=== PATIENT | female | born 1965 | race Caucasian/White ===

== ENCOUNTER 2024-02-06 07:50 | Outpatient (AMB) | payer MEDICAID, SELFPAY ==
[2024-02-06 07:52] VITALS: BP 120/70; PULSE 71; O2SAT 96; BMI 32.5
--- NOTE | 2024-02-06 07:52 | A.OFFVIS_ITS ---
Vital Signs 02/06/24 07:52 Height 5 ft 2 in Weight 177 lb 14.609 oz BMI 32.5 BP 120/70 Blood Pressure Location Lt brachial Position Sitting Pulse 71 Pulse Source Pulse Oximeter Pulse Oximetry (%) 96 Oxygen Delivery Method Room Air Intake Visit Reasons: Autoimmune disease/CM apt Intake Note: Patient presents today for follow up on dermatomyositis. Allergies codeine Allergy (Unknown, Verified 02/06/24 07:56) nausea, dizziness HPI HPI Autoimmune disease/CM apt: Details: less muscle pain since being on Wegovy. Loosing weight. Left ear lesion started a month ago. Improving with topical steroid. No dyspnea or dysphagia. Dermatology - Dr. Arias. She saw Dr. Preciado 3 months ago and received cortisone injection. [facility] Medical History (Updated 02/06/24 @ 08:43 by Maxwell Lafleur MD) Fibroid uterus Dermatomyositis Surgical History (Updated 02/06/24 @ 08:08 by Smiley Ford CMA) H/O gastric sleeve Family History (Updated 02/06/24 @ 08:09 by Smiley Ford CMA) Mother Lung cancer Social History (Updated 02/06/24 @ 08:10 by Smiley Ford CMA) Alcohol intake: never Patient Tobacco Use Status: Former Tobacco user Review of Systems Const All systems reviewed & are unremarkable except as noted in HPI and below Physical Exam Vital Signs: Last Vital Signs Pulse 71 02/06/24 07:52 BP 120/70 02/06/24 07:52 Pulse Ox 96 02/06/24 07:52 Oxygen Delivery Method Room Air 02/06/24 07:52 BMI result Body Mass Index 32.5 Const Other: General: Comfortable CVS: RRR Respiratory: clear to auscultation bilaterally. Good respiratory effort Skin: She has a small 2 mm size erythematous lesion left external ear MSK: No tenderness of any small joints. Left shoulder is tender on palpation with limited abduction up to 90 degrees. She also has limited internal external rotation of left shoulder. Right shoulder range of motion is normal. Good range of motion of lower extremity. Office Procedures AMB Joint Injection/Aspiration Joint Injection/Aspiration Primary Site: left shoulder Coding 85786 - Large joint Procedure code (CPT) selection complete Office Meds Kenalog 40 mg/mL suspension for injection Performing Provider: Maxwell Lafleur MD Performing Location: [facility] Administered by: Maxwell Lafleur MD on 02/06/24 08:40 Dose Route Admin Location Dispensed Lot Number Expiration Date [facility] Esthetician Facialist 40 mg intra-articular 1 mL AP [id number] [employer] lidocaine (PF) 10 mg/mL (1 %) injection solution Performing Provider: Maxwell Lafleur MD Performing Location: [facility] Administered by: Maxwell Lafleur MD on 02/06/24 08:40 Dose Route Admin Location Dispensed Lot Number Expiration Date [place] Esthetician Facialist 10 mg Infiltration 2 mL [id number] [facility] Assessment & Plan Assessment & Plan (1) Dermatomyositis: Comment: Clinically doing well. She had slight recurrence of lesion left external ear, which is improving with topical steroid. Code(s): M33.13 - Other dermatomyositis without myopathy Category: Medical Plan: Labs for disease and drug monitoring ordered on high-risk medication continue hydroxychloroquine 200 mg daily continue mycophenolate mofetil a 1000 mg twice a day Continue to use topical steroid on lesion 1 week on 1 week off Medical records [facility] requested Return to clinic in 3 months (2) Tendonitis of left rotator cuff: Comment: Recurrent. Code(s): M75.82 - Other shoulder lesions, left shoulder Category: Medical Plan: She received left shoulder intra-articular cortisone injection this visit Medical records [facility] requested including imaging Orders: Orders Aspartate Amino Transferase Today M33.13 - Other dermatomyositis without myopathy Erythrocyte Sedimentation Rate Today M33.13 - Other dermatomyositis without myopathy Aldolase Today M33.13 - Other dermatomyositis without myopathy Complete Blood Count Auto Diff Today M33.13 - Other dermatomyositis without myopathy CK, Total+Isoenzymes, Serum Today M33.13 - Other dermatomyositis without myopathy C Reactive Protein Today M33.13 - Other dermatomyositis without myopathy AMB Joint Injection/Aspiration Today M33.13 - Other dermatomyositis without myopathy, M75.82 - Other shoulder lesions, left shoulder Alanine Aminotransferase Today M33.13 - Other dermatomyositis without myopathy Hepatitis B,C Profile Today M33.13 - Other dermatomyositis without myopathy T Spot TB Today M33.13 - Other dermatomyositis without myopathy Creatinine Today M33.13 - Other dermatomyositis without myopathy Creatine Kinase Total Today M33.13 - Other dermatomyositis without myopathy Medications: New lidocaine (PF) 10 mg Infiltration ONCE 1 mL 0RF M33.13 - Other dermatomyositis without myopathy, M75.82 - Other shoulder lesions, left shoulder Kenalog (triamcinolone acetonide) 40 mg intra-articular ONCE 1 mL 0RF NS M33.13 - Other dermatomyositis without myopathy, M75.82 - Other shoulder lesions, left shoulder Coding Level of Care Code Est Pt Level 4 (35745) Complex EM visit Add On G2211 Diagnoses Dermatomyositis M33.13 Tendonitis of left rotator cuff M75.82 CPT Codes Coding - 55463 Large joint: 28493 - Large joint ([id number])
== END 2024-02-06 08:39 | disposition home or self-care (01) ==
PROVIDERS: PCP Internal Medicine; Visit Provider Internal Medicine Rheumatology
DX: M75.82 Other shoulder lesions, left shoulder (principal); M33.13 Other dermatomyositis without myopathy
CPT/HCPCS: 20610; 99214

== ENCOUNTER → 2024-02-06 07:50 | Outpatient (BNVA) | payer OTHER, SELFPAY | PROVIDERS: PCP Internal Medicine; Visit Provider Internal Medicine Rheumatology | DX: M25.512 Pain in left shoulder (principal); M33.13 Other dermatomyositis without myopathy; M75.82 Other shoulder lesions, left shoulder | CPT/HCPCS: 20610; 99212; J2003; J3300 ==

== ENCOUNTER 2024-02-12 09:07 | Outpatient (REF) | payer OTHER, SELFPAY ==
[2024-02-12 10:06] LABS: MANUAL DIFF FLAG NO
[2024-02-12 10:13] LABS: Basophils Absolute Auto 0.1 X10*3/uL (0.0-0.2); Basophils Percent Auto 0.8 % (0-2); Eosinophils Absolute Auto 0.1 X10*3/uL (0.0-0.4); Eosinophils Percent Auto 0.9 % (0-4); Hematocrit 42.9 % (37.0-47.0); Imm Gran Abs Auto 0.01 X10*3/uL (0.00-0.03); Imm Gran Pct Auto 0.2 % (0.0-0.4); Lymphocytes Absolute Auto 1.6 X10*3/uL (1.2-4.9); Lymphocytes Percent Auto 25.1 % (20-40); Mean Corpuscular HGB Conc 32.6 g/dl (31.0-35.0); Mean Corpuscular Volume 91.9 fL (80.0-98.0); Mean Platelet Volume 9.9 fL (9.4-12.3); Monocytes Absolute Auto 0.4 X10*3/uL (0.1-1.2); Monocytes Percent Auto 6.5 % (2-11); Neutrophils Absolute Auto 4.3 x10*3/uL (2.0-8.3); Neutrophils Percent Auto 66.5 % (45-73); Platelet Count 343 X10*3/uL (160-400); Red Blood Count 4.67 X10*6/uL (4.20-5.50); White Blood Count 6.5 X10*3/uL (4.8-10.8)
[2024-02-12 10:49] LABS: Erythrocyte Sedimentation Rate 19 MM/HR (0-20)
[2024-02-12 10:51] LABS: Alanine Aminotransferase 19 U/L (0-31); Aspartate Amino Transferase 23 U/L (5-31); C Reactive Protein 0.14 mg/dL (< or = 0.50); Estimated Glomerular Filt Rate > 60
[2024-02-12 11:10] LABS: HBS Num1 54.67 mIU/mL (0-7.99); HBsAGNum1 0.58 S/CO (0.00-0.99); Hepatitis B Core Antibody Nonreactive (Nonreactive); Hepatitis B Surface Antigen Negative (Negative); ~HepC Num1 11.02 S/CO (0.00-0.79); ~Hepatitis B Surface Antibody REACTIVE (Nonreactive); ~Hepatitis C Antibody Reactive (Nonreactive)
[2024-02-15 05:53] LABS: TS Negative Control Passed; TS Panel A 1; TS Panel B 1; TS Positive Control Passed; TSpotTB Negative (Negative)
[2024-02-18 23:23] LABS: CK-BB None Detected (None Detected); CK-MB 0 % (<5); CK-MM 100 % (95-100); Creatine Kinase,Total,Serum 75 U/L (29-143)
[2024-02-19 21:17] LABS: Aldolase 3.3 U/L (<=8.1)
== END 2024-02-12 09:08 | disposition home or self-care (01) ==
LOC: HO.HMGCLDS 09:07
PROVIDERS: Internal Medicine Rheumatology; Visit Provider Nurse Practitioner
DX: M33.13 Other dermatomyositis without myopathy (principal)
CPT/HCPCS: 36415; 82085; 82550; 82552; 82565; 84450; 84460; 85025; 85652; 86140; 86481; 86704; 86706; 86803; 87340

== ENCOUNTER 2024-04-17 08:54 | Outpatient (AMB) | payer OTHER, SELFPAY ==
[2024-04-17 09:11] VITALS: BP 118/74; PULSE 94; O2SAT 97; BMI 30.8
--- NOTE | 2024-04-17 09:11 | MHC.OFFVIS ---
Vital Signs 04/17/24 09:11 Height 5 ft 2 in Weight 168 lb 8 oz BMI 30.8 BP 118/74 Blood Pressure Location Lt brachial Position Sitting Pulse 94 Pulse Source Pulse Oximeter Pulse Oximetry (%) 97 Oxygen Delivery Method Room Air Intake Visit Reasons: Skin Lesion Allergies codeine Allergy (Unknown, Verified 04/17/24 09:16) nausea, dizziness HPI HPI Skin Lesion: Details: Three weeks ago she developed new lesions on her arm. She has been using topical steroid with some improvement. Sometimes she uses a Q-tip and applies a dab of steroid to use in her ear when she notices flex coming out of her ear. She has muscle soreness around the lesion on her right arm localized superior to lateral elbow. In the last month she has been having bilateral hip pain with difficulty sleeping on the sides. [facility] Medical History Fibroid uterus Dermatomyositis Surgical History H/O gastric sleeve Family History Mother Lung cancer Social History Alcohol intake: never Patient Tobacco Use Status: Former Tobacco user Review of Systems Const All systems reviewed & are unremarkable except as noted in HPI and below Physical Exam Vital Signs: Last Vital Signs Pulse 94 04/17/24 09:11 BP 118/74 04/17/24 09:11 Pulse Ox 97 04/17/24 09:11 Oxygen Delivery Method Room Air 04/17/24 09:11 BMI result Body Mass Index 30.8 Const Other: General: Comfortable CVS: RRR Respiratory: clear to auscultation bilaterally. Good respiratory effort Skin: Erythematous lesion with ulceration present right superior lateral elbow. She has petechiae on her arm. No lesions on her ear. MSK: Tenderness of bilateral trochanteric bursae found. Good external rotation of right hip. Limited external rotation of left hip. Office Procedures AMB Joint Injection/Aspiration Coding 46334 - Bilateral Large Joint Procedure code (CPT) selection complete AMB Joint Injection/Aspiration Joint Injection/Aspiration Details: Bilateral trochanteric bursa Prep: site was prepped using aseptic technique Injected into each site: 40 mg of, Kenalog, with 1 mL of and 1% plain lidocaine Procedure: The patient tolerated the procedure well. Postprocedure protocol was discussed with patient. Coding 82884 - Bilateral Large Joint Procedure code (CPT) selection complete Office Meds lidocaine (PF) 10 mg/mL (1 %) injection solution Performing Provider: Maxwell Lafleur MD Performing Location: [facility] Administered by: Maxwell Lafleur MD on 04/17/24 10:04 Dose Route Admin Location Dispensed Lot Number Expiration Date [facility] Netsuite Developer 10 mg Infiltration 5 mL [id number] [employer] Kenalog 40 mg/mL suspension for injection Performing Provider: Maxwell Lafleur MD Performing Location: [facility] Administered by: Maxwell Lafleur MD on 04/17/24 10:04 Dose Route Admin Location Dispensed Lot Number Expiration Date [facility] Netsuite Developer 40 mg intrabursal 1 mL [id number] [employer] lidocaine (PF) 10 mg/mL (1 %) injection solution Performing Provider: Maxwell Lafleur MD Performing Location: [facility] Administered by: Maxwell Lafleur MD on 04/17/24 10:04 Dose Route Admin Location Dispensed Lot Number Expiration Date [facility] Netsuite Developer 10 mg Infiltration 5 mL [id number] [employer] Kenalog 40 mg/mL suspension for injection Performing Provider: Maxwell Lafleur MD Performing Location: [facility] Administered by: Maxwell Lafleur MD on 04/17/24 10:04 Dose Route Admin Location Dispensed Lot Number Expiration Date [facility] Netsuite Developer 40 mg intrabursal 1 mL [id number] [employer] Assessment & Plan Assessment & Plan (1) Dermatomyositis: Comment: Relapse cutaneous disease with some improvement with topical steroid. We discussed next steps in treatment. 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 Code(s): M33.13 - Other dermatomyositis without myopathy Category: Medical Plan: Prednisone course prescribed Increase hydroxychloroquine to 300 mg daily. Requesting last eye exam for hydroxychloroquine surveillance Continue mycophenolate mofetil at 1000 mg twice a day Labs for disease and drug monitoring ordered this visit on high-risk medication Return to clinic in 3 months (2) Greater trochanteric bursitis of both hips: Comment: Bilateral uncontrolled pain. Code(s): M70.61 - Trochanteric bursitis, right hip; M70.62 - Trochanteric bursitis, left hip Category: Medical Plan: Patient received bilateral trochanteric bursa cortisone injections Return to clinic in 3 months Orders: Orders Aldolase Today M33.13 - Other dermatomyositis without myopathy Alanine Aminotransferase Today Z79.60 - correction (current) use of unspecified immunomodulators and immunosuppressants C Reactive Protein Today M33.13 - Other dermatomyositis without myopathy AMB Joint Injection/Aspiration Today M70.61 - Trochanteric bursitis, right hip, M70.62 - Trochanteric bursitis, left hip AMB Joint Injection/Aspiration Today M70.61 - Trochanteric bursitis, right hip, M70.62 - Trochanteric bursitis, left hip Creatinine Today M33.13 - Other dermatomyositis without myopathy Aspartate Amino Transferase Today M33.13 - Other dermatomyositis without myopathy Creatine Kinase Total Today M33.13 - Other dermatomyositis without myopathy Complete Blood Count Auto Diff Today Z79.60 - assistant terminal manager (current) use of unspecified immunomodulators and immunosuppressants Erythrocyte Sedimentation Rate Today M33.13 - Other dermatomyositis without myopathy Medications: New prednisone Take 4 tablets daily 5 days, 3 tablets daily 3 days, 2 tablets daily 3 days, 1 table daily 3 days then stop. Take prednisone with food. 5 mg PO DIRECTED 38 tabs 0RF Coding Level of Care Code Est Pt Level 4 (34936) Complex EM visit Add On G2211 Diagnoses Dermatomyositis M33.13 Greater trochanteric bursitis of both hips M70.61; M70.62 CPT Codes Coding - 64918 - Bilateral Large Joint: 16677 - Bilateral Large Joint ([id number]) Coding - 37745 - Bilateral Large Joint: 97481 - Bilateral Large Joint ([id number])
--- OUTSIDE RECORDS SUMMARY | 2024-04-17 09:18 | XMS_ITS | Clinical Summary ---
Author Organization Patient Business Ser [facility] Address [address] [place] [address] Care Team Providers Care President Finance Company Name Role Phone Sana Prather MD Primary Care Provider + Allergies Active Allergy Reactions Criticality Noted Date Comments Codeine 04/03/2005 Medications albuterol HFA (PROAIR HFA ; PROVENTIL HFA ; VENTOLIN HFA) 90 mcg/actuation inhaler Inhale 2 Puffs into the lungs every 4 hours as needed for Cough or Wheezing. 08/09/19 23 Active cetirizine (ZyrTEC) 10 mg tablet Take 1 Tablet by mouth daily. 04/25/19 23 Active cyanocobalamin, vitamin B-12, 1,000 mcg tablet, sublingual Take 1 Tablet by mouth daily. 04/25/19 23 Active FERROUS SULFATE ORAL Ferrous Sulfate (Iron) 90 (18 Fe) MG Tab Take 1 Tablet by mouth daily. 04/25/19 23 Active fluorometholone acetate (Flarex) 0.1 % ophthalmic suspension Place 1 Drop into both eyes 2 times daily. INSTILL 1 DROP INTO BOTH EYES TWICE A DAY SHAKE WELL BEFORE EACH USE 04/25/19 23 Active fluticasone HFA (FLOVENT HFA) 110 mcg/actuation inhaler Inhale 2 Puffs into the lungs 2 times daily. 06/26/19 23 Active fluticasone propionate (FLONASE) 50 mcg/actuation nasal spray SPRAY 2 SPRAYS INTO EACH NOSTRIL EVERY DAY 04/25/19 23 Active furosemide (LASIX) 20 mg tablet Take 1-2 Tablets by mouth daily. 04/25/19 23 Active gabapentin (NEURONTIN) 100 mg capsule Take 1 Capsule by mouth 3 times daily. 04/25/19 23 Active ipratropium-alb uteroL (Combivent Respimat) 20-100 mcg/actuation inhaler Inhale 1 Puff into the lungs 4 times daily. 04/25/19 Active montelukast (SINGULAIR) 10 mg tablet Take 1 Tablet by mouth at bedtime. 04/25/19 Active omeprazole (PriLOSEC) [address] capsule Take 1 Capsule by mouth daily. 04/25/19 Active carboxymethylce llulose (Refresh Celluvisc) 1 % ophthalmic gel Apply 1 Drop topically 4 times daily. INSTILL 1 DROP INTO BOTH EYES 4 TIMES A DAY *NOT COVERED* 07/04/19 Active tirzepatide, weight loss, (Zepbound) 5 mg/0.5 mL injection Inject 0.5 mL (5 mg total) under the skin every 7 (seven) days for 28 days. 2 mL 03/24/19 25 025 Active tirzepatide, weight loss, (Zepbound) 2.5 mg/0.5 mL injectionIndica tions:Class 1 obesity due to excess calories with body mass index (BMI) of 32.0 to 32.9 in adult, unspecified whether serious comorbidity present Inject 0.5 mL (2.5 mg total) under the skin every 7 (seven) days for 28 days. 2 mL 02/25/20 24 025 Discontinued semaglutide (Wegovy) 2.4 mg/0.75 mL injection pen INJECT 2.4 MG UNDER THE SKIN EVERY 7 (SEVEN) DAYS FOR 28 DAYS. 3 mL 3 02/27/20 24 025 Discontinued Active Problems Problem Noted Date Diagnosed Date Class 2 obesity due to exces s calories with body mass index (BMI) of 37.0 to 37.9 in adult 12/19/2023 Diet-controlled diabetes mellitus 05/02/2022 Chronic hepatitis C without hepatic coma 016 Overview (12/19/2023): Chronic Hepatitis C Genotype 1B. Tx Started 03/30/16 Harvoni 90-400 mg. Take 1 Tab Daily for 8 Weeks. End Date 06/01/16. 08/20/16 SVR ACHIEVED. Gastroesophageal reflux disease without esophagi tis 11/03/2015 Moderate persistent asthma without complication 11/03/2015 Allergic rhinitis 04/03/2005 History of cocaine abuse 04/03/2005 Lumbago 04/03/2005 Encounters Date Type Department Care Team Description 03/24/2024 Telephone Bariatric Surgery [address] [id number] Erasto Becker MD Med Refill (Zepbound) 02/04/2024 2:15 PM EST Office Visit Bariatric Surgery [address] [address] Erasto Becker MD Class 1 obesity due to excess calories with body mass index (BMI) of 32.0 to 32.9 in adult, unspecified whether serious comorbidity present (Primary Dx) from Last 3 Months Immunizations Name Administration Dates Next Due Influenza trivalent, with pr eservative (Fluzone; Afluria) 6mo and older 12/15/2022,12/15/2021,03/05/2021,11/19 Moderna (age 6mo & older) Bi valent, COVID-19, 0.5 mL or 0.25 mL dosage 12/15/2021 Mumps 11/09/1999 PPD Test 12/26/2000 [employer] SARS-CoV-2 COVID-19, mRNA, LNP-S, preservative free 10/18/2020 Pneumococcal polysaccharide 23 valent (Pneumovax 23) 2yo and older 11/20/2019,01/02/2017 Rubella 11/09/1999 Td Tetanus diptheria (Tdvax) 7yo and older 11/09/1999 Tdap Tetanus diptheria acell ular pertussis (Boostrix; Adacel) 7yo and older 11/03/2015 Varicella live (Varivax) 12m o and older 11/09/1999 Zoster recombinant (Shingrix ) 19yo and older 11/20/2019 Surgical History Surgery Date Site/Laterality Comments OTHER SURGICAL HISTORY PROCEDURE: ---- OTHER ----; COMMENT: fibroid GASTRIC BYPASS 2018 PROCEDURE: GASTRIC BYPASS FOR OBESIT Medical History Medical History Date Comments Lumbago 04/03/2005 DX:Lumbago Other, mixed, or unspecified nondependent drug abuse, in remission 04/03/2005 DX:Other, mixed, or unspecified nondependent drug abuse, in remission Allergic rhinitis 04/03/2005 DX:Allergic rh initis Chronic hepatitis C without hepatic coma (CMS/HCC) 01/31/2016 DX:Chronic hepatitis C witho ut hepatic coma (HCC); COMMENT: Chronic Hepatitis C Genotype 1B. Tx Started 03/30/16 Harvoni 90-400 mg. Take 1 Tab Daily for 8 Weeks. End Date 06/01/16. 08/20/16 SVR ACHIEVED. Family history of lung cancer 04/23/2017 DX :Family history of lung cancer; COMMENT: Mother and maternal aunt Gastroesophageal reflux dise ase without esophagitis 11/03/2015 DX:Gastroesophageal reflux d isease without esophagitis Moderate persistent asthma w ithout complication 11/03/2015 DX:Moderate persistent asthm a without complication Tobacco abuse 06/25/2016 DX:Tobacco abuse Morbid obesity with BMI of 4 0.0-44.9, adult (CMS/HCC) 06/25/2016 DX:Morbid obesity with BMI o f 40.0-44.9, adult ([facility]) Family History Medical History Relation Name Comments Lung cancer Aunt maternal Rheum arthritis Maternal Grandmother Lung cancer Mother Rheum arthritis Mother Rheum arthritis Mother's side maternal au nt Rheum arthritis Other maternal gre at grandmother Relation Name Status Comments Aunt maternal Brother 1 Alive Brother 2 Father Alive Maternal Grandfather Maternal Grandmother Mother (Age 64) lung cance r Mother's side Other Paternal Grandfather Paternal Grandmother Son (Age ) MVA Social History Tobacco Use Types Packs/Day Years Used Date Smoking Tobacco: Former Cigarettes 0.5 8.1 S tarted: 2016 Smokeless Tobacco: Never Alcohol Use Standard Drinks/Week Comments No 0 (1 standard drink = 0.6 oz pur e alcohol) Comments Unknown Sex and Gender Information Value Date Recorded Sex Assigned at Not on file Legal Sex Female 8:43 AM EDT Gender Identity Not on file Sexual Orientation Not on file Obstetrics History Last Filed Vital Signs Vital Sign Reading Time Taken Comments Blood Pressure 138/84 02/04/2024 2:25 PM EST Pulse 69 02/04/2024 2:25 PM EST Temperature 36.2 ??C (97.2 ??F) 02/04/2024 2:25 PM ES T Respiratory Rate - - Oxygen Saturation - - Inhaled Oxygen Concentration - - Weight 80.7 kg (178 lb) 02/04/2024 2:25 PM EST Height 157.5 cm (5' 2 ) 02/04/2024 2:25 PM EST Body Mass Index 32.56 02/04/2024 2:25 PM EST Plan of Treatment Upcoming Encounters Date Type Department Care Team (Late st Contact Info) Description 06/04/2024 8:00 AM EDT Office Visit Bariatric Surgery - [place] [address] [place] [address] Erasto Becker MD [address] [place] [address] Health Maintenance Due Date Last Done Comments Breast Cancer Screening 1963 Diabetes: Annual Foot Exam 1973 Cervical Cancer Screening: Pap Smear 1984 Zoster Vaccines (2 of 2) 01/15/2020 11/20/2019, 09/1999 Pneumococcal Vaccine: 50+ Years (3 of 3 - PCV) 11/19/2020 11/20/2019, 01/02/2017, 12/22/2010 Pneumococcal Vaccine: Pediatrics (0 to 5 Years) and At-Risk Patients (6 to 64 Years) (3 of 3 - PCV) 11/19/2020 11/20/2019, 01/02/2017, 12/22/2010 Depression Screening 01/01/2022 Social Influencers of Health Screening 01/01/2022 Diabetes: Annual GFR (Glomerular Filtration Rate) 10/23/2022 10/23/2021 Hepatitis B Vaccines (1 of 3 - Risk 3-dose series) 2023 Diabetes: Annual Urine Albumin-Creatinine Ratio (uACR) 04/18/2023 Diabetes: Blood Sugar Control Test (HGBA1C) 04/18/2023 10/23/2021 Hypertension/CHF/CAD Annual BMP Blood Test 02/04/2024 10/23/2021 Diabetes: Annual Retina Eye Exam 05/14/2024 05/15/2023 DTaP,Tdap,and Td Vaccines (4 - Td or Tdap) 11/02/2025 11/03/2015, 03/23/2011, 11/09/1999 Colorectal Cancer Screening: FIT-DNA (Cologuard) 04/01/2026 04/01/2023, 04/01/2023 Cholesterol Screening (Lipid Panel) 10/23/2026 10/23/2021 Varicella Vaccines Aged Out 11/09/1999 No longer eligible based on patient's age to complete this topic HIV Screening Completed 01/31/2016 Hepatitis C Screening Completed 06/25/2016 RSV Immunization Patients 60+ Years Old Completed 03/29/2023 COVID-19 Vaccine Completed 11/29/2023, , 12/15/2021, Additional history exists Influenza Vaccine Completed 11/29/2023, , 12/15/2022, Additional history exists HIB Vaccines Aged Out No longer eligi ble based on patient's age to complete this topic HPV Vaccines Aged Out No longer eligi ble based on patient's age to complete this topic Hepatitis A Vaccines Aged Out No long er eligible based on patient's age to complete this topic IPV Vaccines Aged Out No longer eligi ble based on patient's age to complete this topic MMR Vaccines Aged Out No longer eligi ble based on patient's age to complete this topic Meningococcal ACWY Vaccine Aged Out N o longer eligible based on patient's age to complete this topic Meningococcal B Vacine Aged Out No lo nger eligible based on patient's age to complete this topic RSV Immunization Patients Under 20 months Aged Out No longer eligible based on patient's age to complete this topic Procedures Procedure Name Priority Date/Time Associated Diagnosis Comments DIABETES EYE EXAM Routine 05/15/2023 ANNUAL BMP BLOOD TEST Routine 10/23/2021 HEMOGLOBIN A1C Routine 10/23/2021 LIPID PANEL Routine 10/23/2021 HEPATITIS C SCREENING Routine 06/25/2016 HIV SCREENING Routine 01/31/2016 from Last 3 Months or Most Recently Relevant to Health Maintenance Results * Diabetes Eye Exam (05/15/2023) Pathologist [facility] [place] Diabetes: Annual Retina Eye Exam abstracted Result [facility] Provider HEALTH MAINTENANCE Final Result * Annual BMP Blood Test (10/23/2021) [facility] Annual BMP Blood Test abstracted Result [facility] Provider HEALTH MAINTENANCE Final Result * Hemoglobin A1c (10/23/2021) [facility] Hemoglobin A1C 6.2 <=6.5 % Blood Venous blood specimen / Unknown Result [facility] Provider LAB BLOOD ORDERABLES Ritu l Result * (ABNORMAL) Lipid panel (10/23/2021) [facility] LDL/HDL Ratio 6(A) 0 - 4 Triglycerides 341(A) 0 - 150 mg/dL Cholesterol 253(A) 0 - 200 mg/dL HDL 41 >=40 mg/dL LDL Cholesterol 144(A) 0 - 100 mg/dL Blood Venous blood specimen / Unknown Result [facility] Provider LAB BLOOD ORDERABLES Ritu l Result * Hepatitis C Screening (06/25/2016) [facility] Hepatitis C Screening abstracted Result [facility] Provider HEALTH MAINTENANCE Final Result * HIV Screening (01/31/2016) [facility] HIV Screening abstracted Result [facility] Provider HEALTH MAINTENANCE Final Result from Last 3 Months or Most Recently Relevant to Health Maintenance Insurance [facility] MEDICAID ADVANTAGE [address] [place] [address] Care Teams President Finance Company Relationship Specialty Start Date End Date Sana Prather MD [address] [facility] [address] [place] [address] PCP - General 05/28/23
--- OUTSIDE RECORDS SUMMARY | 2024-04-17 09:18 | XMS_ITS | Encounter Summary ---
Author Organization [facility] Address [address] [place] [address] Care Team Providers Care Marriage And Family Teacher Name Role Phone Sana Prather MD Primary Care Provider + Reason for Visit * Reason Onset Date Comments Med Refill 03/24/2024 Zepbound Encounter Details Date Type Department Care Team (Late st Contact Info) Description 03/24/2024 Telephone Bariatric Surgery - [place] [address] [phone] Erasto Becker MD [address] [address] Med Refill (Zepbound) Social History Tobacco Use Types Packs/Day Years [...] on file Sexual Orientation Not on file documented as of this encounter Progress Notes * Awa Kong - 03/24/2024 8:55 AM EST Patient did well on zepbound 2.5 mgs and would like a refill with titration. If appropriate, please send script for Zepbound 5 mgs to their pharmacy. The patient does have a follow up in 06/04/2024 documented in this encounter Plan of Treatment Upcoming Encounters Date Type Department Care Team (Late st Contact Info) Description 06/04/2024 8:00 AM EDT Office Visit Bariatric Surgery - [place] [address] [place] [phone] Erasto Becker MD 175 [facility] [address] [place] [address] documented as of this encounter Visit Diagnoses Not on filedocumented in this encounter Care Teams Marriage And Family Teacher Relationship Specialty Start Date End Date Sana Prather MD 777 [facility] 4 [place] [address] PCP - General 05/28/23 documented as of this encounter
== END 2024-04-17 10:33 | disposition home or self-care (01) ==
PROVIDERS: PCP Internal Medicine; Visit Provider Internal Medicine Rheumatology
DX: M33.13 Other dermatomyositis without myopathy (principal); M70.61 Trochanteric bursitis, right hip; M70.62 Trochanteric bursitis, left hip
CPT/HCPCS: 20610; 99214

== ENCOUNTER → 2024-04-17 08:54 | Outpatient (BNVA) | payer OTHER, SELFPAY | PROVIDERS: PCP Internal Medicine; Visit Provider Internal Medicine Rheumatology | DX: M33.13 Other dermatomyositis without myopathy (principal); M70.61 Trochanteric bursitis, right hip; M70.62 Trochanteric bursitis, left hip; Z79.60 Long term (current) use of unspecified immunomodulators and immunosuppressants | CPT/HCPCS: 20610; 99212; J2003; J3300 ==

== ENCOUNTER 2024-04-21 06:19 | Outpatient (REF) | payer OTHER, SELFPAY ==
--- OUTSIDE RECORDS SUMMARY | 2024-04-21 06:22 | XMS_ITS | Clinical Summary ---
Author Organization Patient Business Ser [facility] Address [address] [place] [address] Care Team Providers Care Refrigeration Mechanic Name Role Phone Sana Prather MD Primary [...] Care Team Description 03/24/2024 Telephone Bariatric Surgery [address] [phone] Erasto Becker MD Med Refill (Zepbound) 02/04/2024 2:15 PM EST Office Visit Bariatric Surgery [address] [address] Erasto Becker MD Class 1 [...] dosage 12/15/2021 Mumps 11/09/1999 PPD Test 12/26/2000 [facility] SARS-CoV-2 COVID-19, mRNA, LNP-S, preservative free 10/18/2020 [...] obesity with BMI o f 40.0-44.9, adult ([facility]) Family History Medical History Relation Name Comments [...] AM EDT Office Visit Bariatric Surgery - [place] [address] [place] [address] Erasto Becker MD [address] [place] [address] Health Maintenance Due Date Last Done Comments [...] Results * Diabetes Eye Exam (05/15/2023) Pathologist [facility] Diabetes: Annual Retina Eye Exam abstracted Result [facility] Provider HEALTH MAINTENANCE Final Result * Annual BMP Blood Test (10/23/2021) [facility] Annual BMP Blood Test abstracted Result [facility] Provider HEALTH MAINTENANCE Final Result * Hemoglobin A1c (10/23/2021) [facility] Hemoglobin A1C 6.2 <=6.5 % Blood Venous blood specimen / Unknown Result [facility] Provider LAB BLOOD ORDERABLES Ritu l Result * (ABNORMAL) Lipid panel (10/23/2021) [facility] LDL/HDL Ratio 6(A) 0 - 4 Triglycerides 341(A) 0 - 150 mg/dL Cholesterol 253(A) 0 - 200 mg/dL HDL 41 >=40 mg/dL LDL Cholesterol 144(A) 0 - 100 mg/dL Blood Venous blood specimen / Unknown Result [facility] Provider LAB BLOOD ORDERABLES Ritu l Result * Hepatitis C Screening (06/25/2016) [facility] Hepatitis C Screening abstracted Result [facility] Provider HEALTH MAINTENANCE Final Result * HIV Screening (01/31/2016) [facility] HIV Screening abstracted Result [facility] Provider HEALTH MAINTENANCE Final Result from Last 3 Months or Most Recently Relevant to Health Maintenance Insurance [facility] MEDICAID ADVANTAGE [address] [place] [address] Care Teams Refrigeration Mechanic Relationship Specialty Start Date End Date Sana Prather MD 7 [facility] 4 [place] [address] PCP - General 05/28/23
--- OUTSIDE RECORDS SUMMARY | 2024-04-21 06:22 | XMS_ITS | Encounter Summary ---
Author Organization [facility] Address [address] [place] [address] Care Team Providers Care House Registry Rn Name Role Phone Sana Prather MD Primary Care Provider + Reason for Visit * Reason Onset Date Comments Med Refill 03/24/2024 Zepbound Encounter Details Date Type Department Care Team (Late st Contact Info) Description 03/24/2024 Telephone Bariatric Surgery - [place] [address] [phone] Erasto Becker MD [address] [address] Med Refill (Zepbound) Social History Tobacco Use [...] AM EDT Office Visit Bariatric Surgery - [place] [address] [facility] [address] [place] [phone] Erasto Becker MD 175 [facility] [address] [place] [address] documented as of this encounter Visit Diagnoses Not on filedocumented in this encounter Care Teams House Registry Rn Relationship Specialty Start Date End Date Sana Prather MD 777 [facility] 4 [place] [address] PCP - General 05/28/23 documented as of this encounter
[2024-04-21 09:54] LABS: MANUAL DIFF FLAG NO
[2024-04-21 09:56] LABS: Basophils Percent Auto 0.3 % (0-2); Eosinophils Percent Auto 0.1 % (0-4); Hematocrit 44.7 % (37.0-47.0); Hemoglobin 14.5 g/dl (12.0-16.0); Imm Gran Abs Auto 0.02 X10*3/uL (0.00-0.03); Imm Gran Pct Auto 0.3 % (0.0-0.4); Lymphocytes Absolute Auto 2.1 X10*3/uL (1.2-4.9); Lymphocytes Percent Auto 28.1 % (20-40); Mean Corpuscular HGB Conc 32.4 g/dl (31.0-35.0); Mean Corpuscular Hemoglobin 30.4 pg (27.0-33.0); Mean Corpuscular Volume 93.7 fL (80.0-98.0); Mean Platelet Volume 10.9 fL (9.4-12.3); Monocytes Absolute Auto 0.6 X10*3/uL (0.1-1.2); Monocytes Percent Auto 8.3 % (2-11); Neutrophils Absolute Auto 4.6 x10*3/uL (2.0-8.3); Neutrophils Percent Auto 62.9 % (45-73); Platelet Count 326 X10*3/uL (160-400); Red Blood Count 4.77 X10*6/uL (4.20-5.50); Red Cell Distribution Width 13.8 % (11.0-16.0); White Blood Count 7.3 X10*3/uL (4.8-10.8)
[2024-04-21 10:37] LABS: Erythrocyte Sedimentation Rate 13 MM/HR (0-20)
[2024-04-21 10:41] LABS: Alanine Aminotransferase 26 U/L (0-31); Aspartate Amino Transferase 24 U/L (5-31); C Reactive Protein < 0.10 mg/dL (< or = 0.50); Estimated Glomerular Filt Rate > 60
[2024-04-25 16:32] LABS: Aldolase 4.4 U/L (<=8.1)
== END 2024-04-21 06:20 | disposition home or self-care (01) ==
LOC: HO.HMGCLDS 06:19
PROVIDERS: PCP Internal Medicine; Visit Provider Internal Medicine Rheumatology
DX: M33.13 Other dermatomyositis without myopathy (principal); Z79.60 Long term (current) use of unspecified immunomodulators and immunosuppressants
CPT/HCPCS: 36415; 82085; 82550; 82565; 84450; 84460; 85025; 85652; 86140

== ENCOUNTER 2024-05-05 08:08 | Outpatient (AMB) | payer OTHER, SELFPAY ==
--- NOTE | 2024-05-05 08:11 | MHC.OFFVIS ---
Vital Signs 05/05/24 08:14 Height 5 ft 2 in Weight 165 lb 2.02 oz BMI 30.2 BP 130/92 H Blood Pressure Location Lt brachial Position Sitting Pulse 69 Pulse Oximetry (%) 98 Oxygen Delivery Method Room Air Intake Visit Reasons: 3 mo follow up Intake Note: Pt presents today for a Dermatomyositis follow up.Pt states that her right foot has been hurting feeling like its twisting to the right. Allergies codeine Allergy (Unknown, Verified 05/05/24 08:11) nausea, dizziness HPI HPI 3 mo follow up: Details: Last cortisone injection bilateral trochanteric burstis did not help. SHe is working from home and has to use the stairs very frequently. L side> right side. She is unable to sleep on her left side. In the past she has tried Motrin. She has also been on meloxicam without benefit in the past use for hand pain. Skin lesions resolved with taking hydroxychloroquine 600mg. She did not take prednisone course. After one pill she had facial swelling. She does not like to take prednisone. Pain every night in ankles described as a twisting motion. When she wakes up her foot is in a different position internally rotated. Denies having muscle pain in calves She is getting up at 2 in the morning. She has a change positions. [facility] Medical History Fibroid uterus Dermatomyositis Surgical History H/O gastric sleeve Family History Mother Lung cancer Social History Alcohol intake: never Patient Tobacco Use Status: Former Tobacco user Physical Exam Vital Signs: Last Vital Signs Pulse 69 05/05/24 08:14 BP 130/92 H 05/05/24 08:14 Pulse Ox 98 05/05/24 08:14 Oxygen Delivery Method Room Air 05/05/24 08:14 BMI result Body Mass Index 30.2 Const Other: General: Comfortable CVS: RRR Respiratory: clear to auscultation bilaterally. Good respiratory effort Skin: Erythematous well demarcated lesion right anterior lateral elbow has resolved. There is still some erythema present. She has petechiae on her arm. No lesions on her ear. MSK: Tenderness of bilateral trochanteric bursae found. Good external rotation of right hip. Limited external rotation of left hip. No synovitis. No tenderness of ankles on palpation with good range of motion. Assessment & Plan Assessment & Plan (1) Dermatomyositis: Comment: Relapse cutaneous disease with some improvement with topical steroid. She self increased hydroxychloroquine to 600 mg daily, which resolved cutaneous disease. I informed her per weight based dosing recommended by the [place] [employer] to reduce the risk of ocular toxicity, hydroxychloroquine 600 mg daily use is too much for her. I will reduce her hydroxychloroquine dose to 400 mg daily and increase mycophenolate mofetil to maintain remission. 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 Presented with ulcerated lesions on extremities, dorsal hands, finger, forehead and ear (external ear and middle ear). Biopsy suggestive of dermatomyositis. JODEE, anti Ela 1 antibody and myositis specific panel negative. Partial response with topical steroid prescribed by [facility]. HCQ 12/2022-, MMF 04/2023-. Code(s): M33.13 - Other dermatomyositis without myopathy Category: Medical Plan: Decrease hydroxychloroquine 400 mg daily. Baseline OCT exam 03/2023 wnl, stable 02/2024, VF 04/2023 wnl. Increase mycophenolate mofetil 1500 mg twice a day Labs for drug monitoring on high-risk medication are up-to-date [facility] Return to clinic in 3 months (2) Muscle spasm: Comment: Likely contributing to ankle pain that wakes patient up at night. Unremarkable exam. We discussed importance of increase hydration. I will rule out electrolyte disturbance with labs. Code(s): M62.838 - Other muscle spasm Category: Medical Plan: Electrolytes ordered Return to clinic in 3 months (3) Greater trochanteric bursitis of both hips: Comment: Bilateral uncontrolled pain. Failed cortisone injection 04/2023. Code(s): M70.61 - Trochanteric bursitis, right hip; M70.62 - Trochanteric bursitis, left hip Category: Medical Plan: Patient agreed to physical therapy Start celecoxib 200 mg twice a day with food Return to clinic in 3 months (4) Dry eyes: Comment: Per eye exam 02/2024. I will evaluate for Sjogren syndrome related dry eyes with antibody testing Code(s): H04.123 - Dry eye syndrome of bilateral lacrimal glands Category: Medical Plan: SSA and SSB antibody ordered Orders: Orders PT Evaluation and Treatment Today M33.13 - Other dermatomyositis without myopathy, M62.838 - Other muscle spasm, M70.61 - Trochanteric bursitis, right hip, M70.62 - Trochanteric bursitis, left hip Magnesium Today M62.838 - Other muscle spasm Albumin Level Today M62.838 - Other muscle spasm Calcium Today M62.838 - Other muscle spasm Potassium Today M62.838 - Other muscle spasm Sjogren's Antibodies Today H04.123 - Dry eye syndrome of bilateral lacrimal glands Medications: New celecoxib Take with food 200 mg PO BID 60 caps 2RF Coding Level of Care Code Est Pt Level 4 (82976) Complex EM visit Add On G2211 Diagnoses Dermatomyositis M33.13 Muscle spasm M62.838 Greater trochanteric bursitis of both hips M70.61; M70.62 Dry eyes H04.123 Time Spent (min) 30
[2024-05-05 08:14] VITALS: BP 130/92; PULSE 69; O2SAT 98; BMI 30.2
--- OUTSIDE RECORDS SUMMARY | 2024-05-05 08:20 | XMS_ITS | Encounter Summary ---
Author Organization [facility] Address [address] [place] [address] Care Team Providers Care Parking Lot Supervisor Name Role Phone Sana Prather MD Primary Care Provider + Reason for Visit * Reason Onset Date Comments Med Refill 04/21/2024 Encounter Details Date Type Department Care Team (Late st Contact Info) Description 04/21/2024 Telephone Bariatric Surgery - [place] 175 [facility] 120 [place] [phone] Erasto eBcker MD 175 [facility] 120 [place] [address] Med Refill Social History Tobacco Use Types Packs/Day Years [...] as of this encounter Progress Notes * Mae Parkinson MA - 04/21/2024 8:38 AM EST Patient did well on Zepbound 5 mgs and would like a refill with titration. If appropriate, please send script for Zepbound 7.5 mgs to their pharmacy. The patient does have a follow up in 06/04/2024 documented in this encounter Plan of Treatment Upcoming Encounters Date Type Department Care Team (Late st Contact Info) Description 06/04/2024 8:00 AM EDT Office Visit Bariatric Surgery - [place] 175 [facility] [address] [place] [phone] Erasto Becker MD 175 [facility] [address] [place] [address] documented as of this encounter Visit Diagnoses Not on filedocumented in this encounter Care Teams Parking Lot Supervisor Relationship Specialty Start Date End Date Sana Prather MD 777 [facility] 4 [place] [address] PCP - General 05/28/23 documented as of this encounter
--- OUTSIDE RECORDS SUMMARY | 2024-05-05 08:20 | XMS_ITS | Clinical Summary ---
Author Organization Patient Business Ser [facility] Address [address] [place] [address] Care Team Providers Care Ent Consultant Name Role Phone Sana Prather MD Primary [...] Tablet by mouth daily. 04/25/19 23 Active cyanocobalamin , vitamin B-12, 1,000 mcg tablet, sublingual Take 1 Tablet by mouth daily. 04/25/19 23 Active FERROUS SULFATE ORAL Ferrous Sulfate (Iron) 90 (18 Fe) MG Tab Take 1 Tablet by mouth daily. 04/25/19 23 Active fluorometholon e acetate (Flarex) 0.1 % ophthalmic suspension Place [...] 1 Capsule by mouth 3 times daily. 02/22/20 23 Active ipratropium-al buteroL (Combivent Respimat) 20-100 mcg/actuation inhaler Inhale 1 Puff into the lungs 4 times daily. 04/25/19 Active montelukast (SINGULAIR) 10 mg tablet Take 1 Tablet by mouth at bedtime. 04/25/19 Active omeprazole (PriLOSEC) [address] capsule Take 1 Capsule by mouth daily. 04/25/19 Active carboxymethylc ellulose (Refresh Celluvisc) 1 % ophthalmic gel Apply 1 Drop topically 4 times daily. INSTILL 1 DROP INTO BOTH EYES 4 TIMES A DAY *NOT COVERED* 07/04/19 Active tirzepatide, weight loss, (Zepbound) 7.5 mg/0.5 mL injection Inject 0.5 mL (7.5 mg total) under the skin every 7 (seven) days for 28 days. 2 mL 04/22/19 25 025 Active tirzepatide, weight loss, (Zepbound) 5 mg/0.5 mL injection Inject 0.5 mL (5 mg total) under the skin every 7 (seven) days for 28 days. 2 mL 03/24/19 25 025 Discontinued Active Problems Problem Noted Date [...] Encounters Date Type Department Care Team Description 04/21/2024 Telephone Bariatric Surgery - [address] [phone] Erasto Becker MD Med Refill 03/24/2024 Telephone Bariatric Surgery - [address] [place] [address] Erasto Becker MD Med Refill (Zepbound) from Last 3 Months Immunizations Name Administration Dates Next Due Influenza trivalent, with pr eservative (Fluzone; Afluria) 6mo and older 12/15/2022,12/15/2021,03/05/2021,11/19 Moderna (age 6mo & older) Bi valent, COVID-19, 0.5 mL or 0.25 mL dosage 12/15/2021 Mumps 11/09/1999 PPD Test 12/26/2000 Pfizer SARS-CoV-2 COVID-19, mRNA, LNP-S, preservative free 10/18/2020 [...] ---- OTHER ----; COMMENT: fibroid GASTRIC BYPASS 2017 PROCEDURE: GASTRIC BYPASS FOR OBESIT Medical History [...] obesity with BMI of 4 0.0-44.9, adult ([facility]) 06/25/2016 DX:Morbid obesity with BMI o f 40.0-44.9, adult ([facility]) Family History Medical History Relation Name Comments [...] AM EDT Office Visit Bariatric Surgery - [address] [place] [address] Erasto Becker MD [address] [place] [address] Health Maintenance Due Date Last Done Comments [...] Results * Diabetes Eye Exam (05/15/2023) Pathologist [facility] Diabetes: Annual Retina Eye Exam abstracted Historical Provider HEALTH MAINTENANCE Final Result * Annual BMP Blood Test (10/23/2021) Pathologist [facility] Annual BMP Blood Test abstracted Historical Provider HEALTH MAINTENANCE Final Result * Hemoglobin A1c (10/23/2021) [facility] Hemoglobin A1C 6.2 <=6.5 % Blood Venous blood specimen / Unknown Result [facility] Provider LAB BLOOD ORDERABLES Ritu l Result * (ABNORMAL) Lipid panel (10/23/2021) LDL/HDL Ratio 6(A) 0 - 4 Triglycerides 341(A) 0 - 150 mg/dL Cholesterol 253(A) 0 - 200 mg/dL HDL 41 >=40 mg/dL LDL Cholesterol 144(A) 0 - 100 mg/dL Blood Venous blood specimen / Unknown Result [facility] Provider LAB BLOOD ORDERABLES Ritu l Result * Hepatitis C Screening (06/25/2016) Pathologist [facility] Hepatitis C Screening abstracted Result [facility] Provider HEALTH MAINTENANCE Final Result * HIV Screening (01/31/2016) Pathologist [facility] HIV Screening abstracted Result [facility] Provider HEALTH MAINTENANCE Final Result from Last 3 Months or Most Recently Relevant to Health Maintenance Insurance [employer] [place] [employer]ICA[employer] ADVANTAGE [address] [place] [address] Care Teams Ent Consultant Relationship Specialty Start Date End Date Sana Prather MD [address] [place] [phone] PCP - General 05/28/23
--- OUTSIDE RECORDS SUMMARY | 2024-05-05 08:20 | XMS_ITS | Encounter Summary ---
Author Organization [facility] Address [address] [place] [address] Care Team Providers Care Sheriff Officer Name Role Phone Sana Prather MD Primary Care Provider + Reason for Visit * Reason Onset Date Comments Med Refill 03/24/2024 Zepbound Encounter Details Date Type Department Care Team (Late st Contact Info) Description 03/24/2024 Telephone Bariatric Surgery - [place] [address] [phone] Erasto Becker MD [address] [address] Med Refill (Zepbound) Social History Tobacco Use [...] AM EDT Office Visit Bariatric Surgery - [place] [address] [facility] [address] [place] [phone] Erasto Becker MD 175 [facility] [address] [place] [address] documented as of this encounter Visit Diagnoses Not on filedocumented in this encounter Care Teams Sheriff Officer Relationship Specialty Start Date End Date Sana Prather MD 777 [facility] 4 [place] [address] PCP - General 05/28/23 documented as of this encounter
== END 2024-05-05 09:03 | disposition home or self-care (01) ==
PROVIDERS: PCP Internal Medicine; Visit Provider Internal Medicine Rheumatology
DX: M62.838 Other muscle spasm (principal); M70.61 Trochanteric bursitis, right hip; M70.62 Trochanteric bursitis, left hip; H04.123 Dry eye syndrome of bilateral lacrimal glands
CPT/HCPCS: 99214; G2211

== ENCOUNTER 2024-05-05 08:08 | Outpatient (REF) | payer OTHER, SELFPAY ==
--- OUTSIDE RECORDS SUMMARY | 2024-05-05 09:17 | XMS_ITS | Clinical Summary ---
Author Organization Patient Business Ser [facility] Address [address] [place] [address] Care Team Providers Care Professor Computer Science Name Role Phone Sana Prather MD Primary [...] Team Description 04/21/2024 Telephone Bariatric Surgery - [address] [phone] Erasto Becker MD Med Refill 03/24/2024 Telephone Bariatric Surgery - [address] [place] [address] Erasto Becker MD Med Refill [...] obesity with BMI of 4 0.0-44.9, adult ([facility]) 06/25/2016 DX:Morbid obesity with BMI o f [...] AM EDT Office Visit Bariatric Surgery - [address] [place] [address] Erasto Becker MD [address] [place] [address] Health Maintenance Due Date Last Done Comments [...] [place] Diabetes: Annual Retina Eye Exam abstracted Historical Provider HEALTH MAINTENANCE Final Result * Annual BMP Blood Test (10/23/2021) Pathologist [facility] Annual BMP Blood Test abstracted Historical Provider HEALTH MAINTENANCE Final Result * Hemoglobin A1c (10/23/2021) [facility] Hemoglobin A1C 6.2 <=6.5 % Blood Venous blood specimen / Unknown Result [facility] Provider LAB BLOOD ORDERABLES Ritu l Result * (ABNORMAL) Lipid panel (10/23/2021) LDL/HDL Ratio 6(A) 0 - 4 Triglycerides 341(A) 0 - 150 mg/dL Cholesterol 253(A) 0 - 200 mg/dL HDL 41 >=40 mg/dL LDL Cholesterol 144(A) 0 - 100 mg/dL Blood Venous blood specimen / Unknown Result [facility] Provider LAB BLOOD ORDERABLES Ritu l Result * Hepatitis C Screening (06/25/2016) Pathologist [facility] Hepatitis C Screening abstracted Result [facility] Provider HEALTH MAINTENANCE Final Result * HIV Screening (01/31/2016) Pathologist [facility] [place] HIV Screening abstracted Result [facility] Provider HEALTH MAINTENANCE Final Result from Last 3 Months or Most Recently Relevant to Health Maintenance Insurance [employer] [place] [employer] ADVANTAGE [address] [place] [address] Care Teams Professor Computer Science Relationship Specialty Start Date End Date Sana Prather MD [address] [place] [phone] PCP - General 05/28/23
--- OUTSIDE RECORDS SUMMARY | 2024-05-05 09:17 | XMS_ITS | Encounter Summary ---
Author Organization [facility] Address [address] [place] [address] Care Team Providers Care Professor Of Communication And Writing Name Role Phone Sana Prather MD Primary Care Provider + Reason for Visit * Reason Onset Date Comments Med Refill 04/21/2024 Encounter Details Date Type Department Care Team (Late st Contact Info) Description 04/21/2024 Telephone Bariatric Surgery - [place] 175 [facility] 120 [place] [phone] Erasto Becker MD 175 [facility] 120 [place] [address] Med Refill Social History Tobacco Use Types [...] AM EDT Office Visit Bariatric Surgery - [place] 175 [facility] [address] [place] [phone] Erasto Becker MD 175 [facility] [address] [place] [address] documented as of this encounter Visit Diagnoses Not on filedocumented in this encounter Care Teams Professor Of Communication And Writing Relationship Specialty Start Date End Date Sana Prather MD 777 [facility] 4 [place] [address] PCP - General 05/28/23 documented as of this encounter
--- OUTSIDE RECORDS SUMMARY | 2024-05-05 09:17 | XMS_ITS | Encounter Summary ---
Author Organization [facility] Address [address] [place] [address] Care Team Providers Care Chief Ultrasound Technologist Name Role Phone Sana Prather MD Primary Care Provider + Reason for Visit * Reason Onset Date Comments Med Refill 03/24/2024 Zepbound Encounter Details Date Type Department Care Team (Late st Contact Info) Description 03/24/2024 Telephone Bariatric Surgery - [place] [address] [phone] Erasto Becker MD [address] [address] Med Refill (Zepbound) Social History Tobacco Use [...] AM EDT Office Visit Bariatric Surgery - [place] [address] [facility] [address] [place] [phone] Erasto Becker MD 175 [facility] [address] [place] [address] documented as of this encounter Visit Diagnoses Not on filedocumented in this encounter Care Teams Chief Ultrasound Technologist Relationship Specialty Start Date End Date Sana Prather MD 777 [facility] 4 [place] [address] PCP - General 05/28/23 documented as of this encounter
[2024-05-05 18:47] LABS: Albumin Level 3.9 g/dL (3.5-5.0); Calcium 9.2 mg/dL (8.4-10.2); Magnesium 2.6 mg/dL (1.6-2.6); Potassium 3.7 mmol/L (3.3-5.1)
== END 2024-05-05 08:09 | disposition home or self-care (01) ==
LOC: HO.HKASLDS 08:08
PROVIDERS: Visit Provider Internal Medicine Rheumatology
DX: M33.13 Other dermatomyositis without myopathy (principal); M70.61 Trochanteric bursitis, right hip; M70.62 Trochanteric bursitis, left hip; H04.123 Dry eye syndrome of bilateral lacrimal glands
CPT/HCPCS: 36415; 82040; 82310; 83735; 84132; 99212

== ENCOUNTER 2024-09-03 07:59 | Outpatient (AMB) | payer OTHER, SELFPAY ==
--- OUTSIDE RECORDS SUMMARY | 2024-09-03 08:01 | XMS_ITS | Clinical Summary ---
Author Organization Patient Business Ser [facility] Address [address] [place] [address] Care Team Providers Care Development Coach Name Role Phone Sana Prather MD Primary [...] COVERED* 07/04/19 Active tirzepatide, weight loss, (Zepbound) 15 mg/0.5 mL injection Inject 0.5 mL (15 mg total) under the skin every 7 (seven) days for 28 days. 2 mL 08/14/19 25 025 Active tirzepatide, weight loss, (Zepbound) 12.5 mg/0.5 mL injectionIndic ations:Over weight Inject 0.5 mL (12.5 mg total) under the skin every 7 (seven) days. 2 mL 2 06/19/19 25 025 Discontinued Active Problems Problem Noted Date Diagnosed Date Class 2 obesity due to exces s calories with body mass index (BMI) of 37.0 to 37.9 in adult 12/19/2023 Diet-controlled diabetes arash litus ([facility]/HCC V24, [facility] V28) 05/02/2022 Chronic hepatitis C without hepatic coma ([facility] V24, [facility] V28) 01/31/2016 Overview (12/19/2023): Chronic Hepatitis C Genotype 1B. Tx Started 03/30/16 Harvoni 90-400 mg. Take 1 Tab Daily for 8 Weeks. End Date 06/01/16. 08/20/16 SVR ACHIEVED. Gastroesophageal reflux disease without esophagi tis 11/03/2015 Moderate persistent asthma without complication 11/03/2015 Allergic rhinitis 04/03/2005 History of cocaine abuse ([facility] V24, [facility] V 28) 04/03/2005 Lumbago 04/03/2005 Encounters Date Type Department Care Team Description 08/10/2024 Telephone Bariatric Surgery [address] [place] [address] Erasto Becker MD Med Refill (Zepbound) 06/18/2024 8:15 AM EDT Office Visit Bariatric Surgery [address] [address] Erasto Becker MD Over weight (Primary Dx) from Last 3 Months Immunizations Name Administration Dates Next Due Influenza trivalent, with pr eservative (Fluzone; Afluria) 6mo and older 12/15/2022,12/15/2021,03/05/2021,11/19 Moderna (age 6mo & older) Bi valent, COVID-19, 0.5 mL or 0.25 mL dosage 12/15/2021 Mumps 11/09/1999 PPD Test 12/26/2000 [place] SARS-CoV-2 COVID-19, mRNA, LNP-S, preservative free 10/18/2020 [...] initis Chronic hepatitis C without hepatic coma (CMS/HCC V24, CMS/HCC V28) 01/31/2016 DX:Chronic hepatitis C without hepatic coma (HCC); COMMENT: Chronic Hepatitis C Genotype 1B. Tx Started 1/27/17 Harvoni 90-400 mg. Take 1 Tab Daily [...] obesity with BMI of 4 0.0-44.9, adult (CMS/HCC V24, CMS/HCC V28) 06/25/2016 DX:Morbid obesity wit h BMI of 40.0-44.9, adult ([facility]) Family History Medical History Relation Name Comments [...] Used Date Smoking Tobacco: Former Cigarettes 0.5 8.4 S tarted: 2016 Smokeless Tobacco: Never Alcohol [...] Sign Reading Time Taken Comments Blood Pressure 136/81 06/18/2024 8:27 AM EDT Pulse 69 06/18/2024 8:27 AM EDT Temperature 36.6 C (97.8 F) 06/18/2024 8:27 AM EDT Respiratory Rate - - Oxygen Saturation - - Inhaled Oxygen Concentration - - Weight 69.4 kg (153 lb) 06/18/2024 8:27 AM EDT Height 157.5 cm (5' 2 ) 06/18/2024 8:27 AM EDT Body Mass Index 27.98 06/18/2024 8:27 AM EDT Plan of Treatment Upcoming Encounters Date Type Department Care Team (Late st Contact Info) Description 09/24/2024 8:00 AM EDT Office Visit Bariatric Surgery - [place] [address] [facility] [address] [place] [phone] Erasto Becker MD [address] [facility] [address] [place] [address] Health Maintenance Due Date Last Done Comments [...] Diabetes: Annual Retina Eye Exam 05/14/2024 05/15/2023 COVID-19 Vaccine (9 - Pfizer risk season) 2024 11/29/2023, 12/15/2022, 12/15/2021, Additional history exists DTaP,Tdap,and Td Vaccines (4 - Td or Tdap) 11/02/2025 11/03/2015, 03/23/2011, 11/09/1999 Colorectal Cancer Screening: FIT-DNA (Cologuard) 04/01/2026 04/01/2023, 04/01/2023 Cholesterol Screening (Lipid Panel) 10/23/2026 10/23/2021 Varicella Vaccines Aged Out 11/09/1999 No longer eligible based on patient's age to complete this topic HIV Screening Completed 01/31/2016 Hepatitis C Screening Completed 06/25/2016 RSV Immunization Adult Patients Completed 03/29/2023 Influenza Vaccine Completed 11/29/2023, , 12/15/2022, Additional [...] age to complete this topic Meningococcal B Vaccine Aged Out No l onger eligible based on patient's age to complete [...] Maintenance Results * Diabetes Eye Exam (05/15/2023) Diabetes: Annual Retina Eye Exam abstracted us Historical Provider MD HEALTH MAINTENANCE Final Result * Annual BMP Blood Test (10/23/2021) [facility] Annual BMP Blood Test abstracted Result [facility] Provider HEALTH MAINTENANCE Final Result * Hemoglobin A1c (10/23/2021) [facility] Hemoglobin A1C 6.2 <=6.5 % Blood Venous blood specimen / Unknown Result [facility] Provider LAB BLOOD ORDERABLES Ritu l Result * (ABNORMAL) Lipid panel (10/23/2021) [facility] LDL/HDL Ratio 6(A) 0 - 4 Triglycerides 341(A) 0 - 150 mg/dL Cholesterol 253(A) 0 - 200 mg/dL HDL 41 >=40 mg/dL LDL Cholesterol 144(A) 0 - 100 mg/dL Blood Venous blood specimen / Unknown Result [facility] Provider LAB BLOOD ORDERABLES Ritu l Result * Hepatitis C Screening (06/25/2016) [facility] Hepatitis C Screening abstracted Result [facility] Provider HEALTH MAINTENANCE Final Result * HIV Screening (01/31/2016) [facility] HIV Screening abstracted Result [facility] Provider HEALTH MAINTENANCE Final Result from Last 3 Months or Most Recently Relevant to Health Maintenance Insurance [facility] MEDICAID ADVANTAGE Care Teams Development Coach Relationship Specialty Start Date End Date Sana Prather MD [address] [place] [phone] PCP - General 05/28/23
--- NOTE | 2024-09-03 08:02 | A.OFFVIS_ITS ---
Vital Signs 09/03/24 08:03 Height 5 ft 2 in Weight 145 lb 11.609 oz BMI 26.7 BP 140/80 H Blood Pressure Location Rt brachial Position Sitting Pulse 62 Pulse Source Palpation Intake Visit Reasons: 3 mo follow up Intake Note: Pt presents today for a Dermatomyositis follow up. Allergies codeine Allergy (Unknown, Verified 09/03/24 08:03) nausea, dizziness HPI HPI 3 mo follow up: Details: Clumps of hair is coming off. She has a bald spot. Hair loss started 6 months after starting treatment for DM. Stopped HCQ and MMF 08/2024. Less hair loss in the sink. Muscle pain at night. Left shoulder pain is uncontrolled. Celebrex helps with hip pain. [facility] Medical History Fibroid uterus Dermatomyositis Surgical History H/O gastric sleeve Family History Mother Lung cancer Social History Alcohol intake: never Patient Tobacco Use Status: Former Tobacco user Physical Exam Vital Signs: Last Vital Signs Pulse 62 09/03/24 08:03 BP 140/80 H 09/03/24 08:03 BMI result Body Mass Index 26.7 Const Other: General: Comfortable CVS: RRR Respiratory: clear to auscultation bilaterally. Good respiratory effort Skin: Erythematous well demarcated lesion right anterior lateral elbow with bullous appearance (2-3 cysts on surface). No lesions on her ear. MSK: She has tender bilateral shoulders left worse than right. Shoulder abduction 160 degrees with limited full internal and external rotation actively. Tenderness of bilateral trochanteric bursae found. Limited external rotation of bilateral hips. No synovitis. No tenderness of ankles on palpation with good range of motion. Power upper extremities is 5/5. Power lower extremities hip flexors is 4 out of 5, rest of lower extremities is 5/5. Office Procedures AMB Joint Injection/Aspiration Joint Injection/Aspiration Details: Left shoulder joint Prep: site was prepped using aseptic technique Injected: 40 mg of, Kenalog, with 1 mL of and 1% plain lidocaine Procedure: Informed verbal consent was obtained. The patient tolerated the procedure well. Postprocedure protocol was discussed with patient. Coding 38944 - Large joint Procedure code (CPT) selection complete Office Meds lidocaine (PF) 10 mg/mL (1 %) injection solution Performing Provider: Maxwell Lafleur MD Performing Location: [facility] Administered by: Mendel Mccarthy RN on 09/03/24 13:47 Dose Route Admin Location Dispensed Lot Number Expiration Date [facility] Fire Pot Operator 10 mg Infiltration 2 mL [id number] 08/01/26 37975-331-68 [facility] Total Dispensed Waste 2 mL 50 % Kenalog 40 mg/mL suspension for injection Performing Provider: Maxwell Lafleur MD Performing Location: [facility] Administered by: Mendel Mccarthy RN on 09/03/24 13:47 Dose Route Admin Location Dispensed Lot Number Expiration Date [facility] Fire Pot Operator 40 mg intra-articular intra-atricular 1 mL [id number] 10/01/26 66735- 130-01 [facility] Total Dispensed Waste 1 mL 0 % Assessment & Plan Assessment & Plan (1) Dermatomyositis: Comment: Relapse cutaneous disease recently treated on mycophenolate mofetil and hydroxychloroquine. She discontinued both drugs due to hair loss last month with resulting reoccurrence of lesion of right arm. Hair loss continues to fall in clumps but it has reduced since discontinuing immunosuppressive agents. She is using topical steroid prescribed by Dermatology. She has developed bilateral lower extremity proximal muscle weakness, which is concerning for muscle involvement. We discussed next steps of treatment with methotrexate. Discussed side effects, benefits and drug monitoring. 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 Presented with ulcerated lesions on extremities, dorsal hands, finger, forehead and ear (external ear and middle ear). Biopsy suggestive of dermatomyositis. JODEE, anti Ela 1 antibody and myositis specific panel negative. Partial response with topical steroid prescribed by [facility]. HCQ 12/2022-08/2024 d/c hair loss, MMF 04/2023-08/2024 d/c hair loss. Code(s): M33.13 - Other dermatomyositis without myopathy Category: Medical Plan: Labs for disease monitoring ordered. After lab results are back, we will start methotrexate 12.5 mg once weekly and folic acid 1 mg daily. She will then need labs 4 weeks after starting methotrexate we CBC, creatinine, AST, ALT. PT ordered for lower extremity strengthening Continue topical steroid applied to right arm lesion twice a day I am avoiding prednisone at this time due to prior side effect of weight gain. If lesions progress, she will call office and I will reconsider prescribing prednisone Return to clinic in 3 months (2) Greater trochanteric bursitis of both hips: Comment: Bilateral uncontrolled pain. Failed cortisone injection bilateral 04/2024. Code(s): M70.61 - Trochanteric bursitis, right hip; M70.62 - Trochanteric bursitis, left hip Category: Medical Plan: Patient agreed to physical therapy. PT ordered. Continue celecoxib 200 mg twice a day with food Labs for drug monitoring on chronic NSAID ordered Return to clinic in 3 months (3) Dry eyes: Comment: Per eye exam 02/2024. I will evaluate for Sjogren syndrome related dry eyes with antibody testing Code(s): H04.123 - Dry eye syndrome of bilateral lacrimal glands Category: Medical Plan: SSA and SSB antibody ordered (4) Tendonitis of left rotator cuff: Comment: Recurrent. Last cortisone injection February 2024. Code(s): M75.82 - Other shoulder lesions, left shoulder Category: Medical Plan: Patient received cortisone injection to left shoulder X-ray left shoulder reports [facility] Return to clinic in 3 months Orders: Orders Creatine Kinase Total 09/03/24 M33.13 - Other dermatomyositis without myopathy AMB Joint Injection/Aspiration 09/03/24 M75.82 - Other shoulder lesions, left shoulder Coding Level of Care Code Est Pt Level 4 (69554) Complex EM visit Add On G2211 Diagnoses Dermatomyositis M33.13 Greater trochanteric bursitis of both hips M70.61; M70.62 Dry eyes H04.123 Tendonitis of left rotator cuff M75.82 CPT Codes Coding - 37641 Large joint: 73671 - Large joint ([id number]) Time Spent (min) 30
[2024-09-03 08:03] VITALS: BP 140/80; PULSE 62; BMI 26.7
== END 2024-09-03 08:44 | disposition home or self-care (01) ==
LOC: HO.RHES 08:00
PROVIDERS: Visit Provider Internal Medicine Rheumatology
DX: M75.82 Other shoulder lesions, left shoulder (principal)

== ENCOUNTER → 2024-09-03 07:59 | Outpatient (BNVA) | payer OTHER, SELFPAY | PROVIDERS: Visit Provider Internal Medicine Rheumatology | DX: M25.512 Pain in left shoulder (principal); M75.82 Other shoulder lesions, left shoulder; M70.61 Trochanteric bursitis, right hip; M70.62 Trochanteric bursitis, left hip; H04.123 Dry eye syndrome of bilateral lacrimal glands; M33.13 Other dermatomyositis without myopathy | CPT/HCPCS: 20610; 99212; J2003; J3300 ==

== ENCOUNTER 2024-09-07 06:06 | Outpatient (REF) | payer OTHER, SELFPAY ==
[2024-09-07 10:49] LABS: MANUAL DIFF FLAG NO
[2024-09-07 11:01] LABS: Hematocrit 42.0 % (37.0-47.0); Hemoglobin 14.2 g/dl (12.0-16.0); Imm Gran Abs Auto 0.01 X10*3/uL (0.00-0.03); Imm Gran Pct Auto 0.2 % (0.0-0.4); Lymphocytes Absolute Auto 2.1 X10*3/uL (1.2-4.9); Mean Corpuscular HGB Conc 33.8 g/dl (31.0-35.0); Mean Corpuscular Hemoglobin 30.9 pg (27.0-33.0); Mean Corpuscular Volume 91.5 fL (80.0-98.0); NRBC Abs Auto 0.000 X10*3/uL (0.0-0.012); NRBC Pct Auto 0.0 /100WBC (0.0-0.2); Platelet Count 242 X10*3/uL (160-400); Red Blood Count 4.59 X10*6/uL (4.20-5.50); White Blood Count 6.2 X10*3/uL (4.8-10.8)
[2024-09-07 12:08] LABS: Alanine Aminotransferase 16 U/L (0-31); Aspartate Amino Transferase 25 U/L (5-31); Estimated Glomerular Filt Rate > 60
[2024-09-08 15:09] LABS: Antibody to SS-A Antigen <1.0 NEG AI (<1.0 NEG); Antibody to SS-B Antigen <1.0 NEG AI (<1.0 NEG)
== END 2024-09-07 06:07 | disposition home or self-care (01) ==
LOC: HO.HMGCLDS 06:06
PROVIDERS: Visit Provider Internal Medicine Rheumatology
DX: M33.13 Other dermatomyositis without myopathy (principal); H04.123 Dry eye syndrome of bilateral lacrimal glands
CPT/HCPCS: 36415; 82085; 82550; 82565; 84450; 84460; 85025; 85652; 86140; 86235

== ENCOUNTER 2024-10-01 06:57 | Outpatient (REF) | payer OTHER, SELFPAY ==
--- OUTSIDE RECORDS SUMMARY | 2024-10-01 07:02 | XMS_ITS | Clinical Summary ---
Author Organization Patient Business Ser [facility] Address [address] [place] [address] Care Team Providers Care Autism Motor Specialist Name Role Phone Sana Prather MD Primary Care Provider + Allergies Active Allergy Reactions Criticality Noted Date Comments Codeine 04/03/2005 Medications albuterol HFA (PROAIR HFA ; PROVENTIL HFA ; VENTOLIN HFA) 90 mcg/actuation inhaler Inhale 2 Puffs into the lungs every 4 hours as needed for Cough or Wheezing. 3 Active cetirizine (ZyrTEC) 10 mg tablet Take 1 Tablet by mouth daily. 3 Active cyanocobalamin, vitamin B-12, 1,000 mcg tablet, sublingual Take 1 Tablet by mouth daily. 3 Active FERROUS SULFATE ORAL Ferrous Sulfate (Iron) 90 (18 Fe) MG Tab Take 1 Tablet by mouth daily. 3 Active fluorometholone acetate (Flarex) 0.1 % ophthalmic suspension Place 1 Drop into both eyes 2 times daily. INSTILL 1 DROP INTO BOTH EYES TWICE A DAY SHAKE WELL BEFORE EACH USE 3 Active fluticasone HFA (FLOVENT HFA) 110 mcg/actuation inhaler Inhale 2 Puffs into the lungs 2 times daily. 3 Active fluticasone propionate (FLONASE) 50 mcg/actuation nasal spray SPRAY 2 SPRAYS INTO EACH NOSTRIL EVERY DAY 3 Active furosemide (LASIX) 20 mg tablet Take 1-2 Tablets by mouth daily. 3 Active gabapentin (NEURONTIN) 100 mg capsule Take 1 Capsule by mouth 3 times daily. 3 Active ipratropium-alb uteroL (Combivent Respimat) 20-100 mcg/actuation inhaler Inhale 1 Puff into the lungs 4 times daily. 3 Active montelukast (SINGULAIR) 10 mg tablet Take 1 Tablet by mouth at bedtime. 3 Active omeprazole (PriLOSEC) [address] capsule Take 1 Capsule by mouth daily. 3 Active carboxymethylce llulose (Refresh Celluvisc) 1 % ophthalmic gel Apply 1 Drop topically 4 times daily. INSTILL 1 DROP INTO BOTH EYES 4 TIMES A DAY *NOT COVERED* 3 Active tirzepatide, weight loss, (Zepbound) 15 mg/0.5 mL injectionIndica tions:Over weight Inject 0.5 mL (15 mg total) under the skin every 7 (seven) days. 2 mL 2 5 12/03/19 25 Active tirzepatide, weight loss, (Zepbound) 15 mg/0.5 mL injection Inject 0.5 mL (15 mg total) under the skin every 7 (seven) days for 28 days. 2 mL 5 09/08/19 25 Discontinu ed(Reorder ) Active Problems Problem Noted Date Diagnosed Date Class 2 obesity due to exces s calories with body mass index (BMI) of 37.0 to 37.9 in adult 12/19/2023 Diet-controlled diabetes arash litus ([facility]/HCC V24, [facility]/HCC V28) 05/02/2022 Chronic hepatitis C without hepatic coma ([facility]/HCC V24, [facility] V28) 01/31/2016 Overview (12/19/2023): Chronic Hepatitis C Genotype 1B. Tx Started 03/30/16 Harvoni 90-400 mg. Take 1 Tab Daily for 8 Weeks. End Date 06/01/16. 08/20/16 SVR ACHIEVED. Gastroesophageal reflux disease without esophagi tis 11/03/2015 Moderate persistent asthma without complication 11/03/2015 Allergic rhinitis 04/03/2005 History of cocaine abuse ([facility] V24, [facility] V 28) 04/03/2005 Lumbago 04/03/2005 Encounters Date Type Department Care Team Description 09/24/2024 8:00 AM EDT Office Visit Bariatric Surgery - [place] [facility] [address] [place] [address] Erasto Becker MD Over weight (Primary Dx); Postgastrectomy malabsorption 08/10/2024 Telephone Bariatric Surgery [facility] [address] [address] Erasto Becker MD Med Refill (Zepbound) from Last 3 Months Immunizations Name Administration Dates Next Due Influenza trivalent, with pr eservative (Fluzone; Afluria) 6mo and older 12/15/2022,12/15/2021,03/05/2021,11/19 Moderna (age 6mo & older) Bi valent, COVID-19, 0.5 mL or 0.25 mL dosage 12/15/2021 Mumps 11/09/1999 PPD Test 12/26/2000 [employer] SARS-CoV-2 COVID-19, mRNA, LNP-S, preservative free 10/18/2020 [...] obesity wit h BMI of 40.0-44.9, adult ([facility]) Family History Medical History Relation [...] Used Date Smoking Tobacco: Former Cigarettes 0.5 8.5 S tarted: 2016 Smokeless Tobacco: Never Alcohol [...] Sign Reading Time Taken Comments Blood Pressure 126/80 09/24/2024 8:13 AM EDT Pulse 64 09/24/2024 8:13 AM EDT Temperature 36.6 C (97.8 F) 09/24/2024 8:13 AM EDT Respiratory Rate - - Oxygen Saturation - - Inhaled Oxygen Concentration - - Weight 64.4 kg (142 lb) 09/24/2024 8:13 AM EDT Height 157.5 cm (5' 2 ) 09/24/2024 8:13 AM EDT Body Mass Index 25.97 09/24/2024 8:13 AM EDT Plan of Treatment Upcoming Encounters Date Type Department Care Team (Late st Contact Info) Description 03/30/2025 8:00 AM EST Office Visit Bariatric Surgery - [place] [address] [facility] [address] [place] [phone] Erasto Becker MD [address] [facility] [address] [place] [address] Health Maintenance Due Date Last Done Comments Breast Cancer Screening 1963 Diabetes: Annual Foot Exam 1973 Cervical Cancer Screening: Pap Smear 1984 Zoster Vaccines (2 of 2) 01/15/2020 11/20/2019, 09/1999 Pneumococcal Vaccine: 50+ Years (3 of 3 - PCV) 11/19/2020 11/20/2019, 01/02/2017, 12/22/2010 Social Influencers of Health Screening 01/01/2022 Diabetes: Annual GFR (Glomerular Filtration Rate) 10/23/2022 10/23/2021 Hepatitis B Vaccines (1 of 3 - Risk 3-dose series) 2023 Diabetes: Annual Urine Albumin-Creatinine Ratio (uACR) 04/18/2023 Diabetes: Blood Sugar Control Test (HGBA1C) 04/18/2023 10/23/2021 Hypertension/CHF/CAD Annual BMP Blood Test 02/04/2024 10/23/2021 Depression Screening 03/04/2024 Diabetes: Annual Retina Eye Exam 05/14/2024 05/15/2023 COVID-19 Vaccine (9 - Pfizer risk season) 2024 11/29/2023, 12/15/2022, 12/15/2021, Additional history exists Influenza Vaccine (#1) 2024 , 12/15/2022, 12/15/2022, Additional history exists DTaP,Tdap,and Td Vaccines (4 - Td or Tdap) 11/02/2025 11/03/2015, 03/23/2011, 11/09/1999 Colorectal Cancer Screening: FIT-DNA (Cologuard) 04/01/2026 04/01/2023, 04/01/2023 Cholesterol Screening (Lipid Panel) 10/23/2026 10/23/2021 Varicella Vaccines Aged Out 11/09/1999 No longer eligible based on patient's age to complete this topic HIV Screening Completed 01/31/2016 Hepatitis C Screening Completed 06/25/2016 RSV Immunization Adult Patients Completed 03/29/2023 HIB Vaccines Aged Out No longer eligi [...] Procedure Name Priority Date/Time Associated Diagnosis Comments ALBUMIN Routine 09/24/2024 8:31 AM EDT Postgastrectomy malabsorption CALCIUM Routine 09/24/2024 8:31 AM EDT Postgastrectomy malabsorption PARATHYROID HORMONE INTACT Routine 09/24/2024 8:31 AM EDT Postgastrectomy malabsorption IRON AND TIBC Routine 09/24/2024 8:31 AM EDT Postgastrectomy malabsorption VITAMIN B12 Routine 09/24/2024 8:31 AM EDT Postgastrectomy malabsorption ZINC Routine 09/24/2024 8:31 AM EDT Postgastrectomy malabsorption DIABETES EYE EXAM Routine 05/15/2023 ANNUAL BMP BLOOD TEST Routine 10/23/2021 HEMOGLOBIN A1C Routine 10/23/2021 LIPID PANEL Routine 10/23/2021 HEPATITIS C SCREENING Routine 06/25/2016 HIV SCREENING Routine 01/31/2016 from Last 3 Months or Most Recently Relevant to Health Maintenance Results * (ABNORMAL) Iron and TIBC (09/24/2024 8:31 AM EDT) Iron 162(H) 40 - 150 mcg/dL LAB CHEMISTRY METHOD 09/24/2024 11:02 AM EDT [facility] TIBC 417 250 - 450 mcg/dL LAB CHEMISTRY METHOD 09/24/2024 11:02 AM EDT [facility] Iron Saturation 39 15 - 50 % LAB CHEMISTRY METHOD 09/24/2024 11:02 AM EDT [facility] Blood Venous blood specimen / Unknown Venipuncture / Unknown 09/24/2024 8:31 AM EDT 09/24/2024 8:31 AM EDT us Erasto Becker MD LAB BLOOD ORDERABLES Final R esult [facility] [address] [place] [address], * Zinc (09/24/2024 8:31 AM EDT) Zinc 80 60 - 130 ug/dL 09/28/2024 12:44 PM EDT [facility] Comment: Elevated results may be due to sample collected in a non-certified trace element-free tube. This test was developed and the performance characteristics determined by [facility]. It has not been cleared or approved by the FDA. The laboratory is regulated under CLIA as qualified to perform high-complexity testing. This test is used for patient testing purposes. It should not be regarded as investigational or for research. Test performed at [facility], [address] [place] [address] Kathleen Cruz MD, PhD - [employer] Blood Venous blood specimen / Unknown Venipuncture / Unknown 09/24/2024 8:31 AM EDT 09/24/2024 8:31 AM EDT us Earsto Becker MD LAB BLOOD ORDERABLES Final R esult [facility] [address] [place] [address] * Parathyroid hormone intact (09/24/2024 8:31 AM EDT) PTH 51.5 18.5 - 88.0 pcg/mL LAB CHEMISTRY METHOD 09/24/2024 11:44 AM EDT [facility] Blood Venous blood specimen / Unknown Venipuncture / Unknown 09/24/2024 8:31 AM EDT 09/24/2024 8:31 AM EDT us Erasto Becker MD LAB BLOOD ORDERABLES Final R esult Performing Organization Address [facility] [[email or web address]] Co de Phone Number [facility] [address] [place] [address], [place] [phone] * Vitamin B12 (09/24/2024 8:31 AM EDT) Vitamin B-12 869 250 - 900 pcg/mL LAB CHEMISTRY METHOD 09/24/2024 11:02 AM EDT [facility] Blood Venous blood specimen / Unknown Venipuncture / Unknown 09/24/2024 8:31 AM EDT 09/24/2024 8:31 AM EDT us Erasto Becker MD LAB BLOOD ORDERABLES Final R esult Performing Organization Address City/[facility]/ZIP Co de Phone Number [facility] [address] [place] [address], [place] [phone] * Calcium (09/24/2024 8:31 AM EDT) Pathologist [facility] Calcium 10.2 8.5 - 10.5 mg/dL LAB CHEMISTRY METHOD 09/24/2024 10:31 AM EDT [facility] Blood Venous blood specimen / Unknown Venipuncture / Unknown 09/24/2024 8:31 AM EDT 09/24/2024 8:31 AM EDT Erasto Becker MD LAB BLOOD ORDERABLES Final R esult [facility] [address] [place] [address], [place] [phone] * Albumin (09/24/2024 8:31 AM EDT) [facility] Albumin 4.1 3.2 - 5.0 g/dL LAB CHEMISTRY METHOD 09/24/2024 10:31 AM EDT [facility] Blood Venous blood specimen / Unknown Venipuncture / Unknown 09/24/2024 8:31 AM EDT 09/24/2024 8:31 AM EDT Erasto Becker MD LAB BLOOD ORDERABLES Final R esult [facility] [address] [place] [address], [place] [phone] * Diabetes Eye Exam (05/15/2023) Pathologist [facility] Diabetes: Annual Retina Eye Exam abstracted us Historical Provider HEALTH MAINTENANCE Final Result * Annual BMP Blood Test (10/23/2021) Pathologist [facility] Annual BMP Blood Test abstracted us Historical Provider HEALTH MAINTENANCE Final Result * Hemoglobin A1c (10/23/2021) Pathologist [facility] Hemoglobin A1C 6.2 <=6.5 % Blood Venous blood specimen / Unknown Result [facility] Provider LAB BLOOD ORDERABLES Ritu l Result * (ABNORMAL) Lipid panel (10/23/2021) [facility] LDL/HDL Ratio 6(A) 0 - 4 Triglycerides 341(A) 0 - 150 mg/dL Cholesterol 253(A) 0 - 200 mg/dL HDL 41 >=40 mg/dL LDL Cholesterol 144(A) 0 - 100 mg/dL Blood Venous blood specimen / Unknown Result [facility] Provider LAB BLOOD ORDERABLES Ritu l Result * Hepatitis C Screening (06/25/2016) Pathologist [facility] Hepatitis C Screening abstracted [facility] Provider HEALTH MAINTENANCE Final Result * HIV Screening (01/31/2016) [facility] HIV Screening abstracted [facility] Provider HEALTH MAINTENANCE Final Result from Last 3 Months or Most Recently Relevant to Health Maintenance Insurance [employer] [address] [place] [address] Care Teams Autism Motor Specialist Relationship Specialty Start Date End Date Sana Prather MD [address] [place] [address] [address] [place] [address] PCP - General 05/28/23
[2024-10-01 10:30] LABS: Baso%MD 0.8 %; Eos%MD 1.2 %; Hematocrit 42.8 % (37.0-47.0); Hemoglobin 14.3 g/dl (12.0-16.0); IG%MD 0.2 %; Lymph%MD 35.8 %; Mean Corpuscular HGB Conc 33.4 g/dl (31.0-35.0); Mean Corpuscular Hemoglobin 30.8 pg (27.0-33.0); Mean Corpuscular Volume 92.0 fL (80.0-98.0); Mono%MD 5.5 %; NRBC Abs Auto 0.000 X10*3/uL (0.0-0.012); NRBC Pct Auto 0.0 /100WBC (0.0-0.2); Neut%MD 56.5 %; Platelet Count 261 X10*3/uL (160-400); Red Blood Count 4.65 X10*6/uL (4.20-5.50); White Blood Count 5.1 X10*3/uL (4.8-10.8)
[2024-10-01 10:33] LABS: Alanine Aminotransferase 18 U/L (0-31); Aspartate Amino Transferase 23 U/L (5-31); Estimated Glomerular Filt Rate > 60
[2024-10-01 12:13] LABS: Basophils Abs Manual 0.1 X10*3/uL (0.0-0.2); Basophils Percent Manual 1 % (0-2); Eosinophils Absolute Manual 0.1 X10*3/uL (0.0-0.4); Eosinophils Percent Manual 1 % (0-4); Lymphocytes Absolute Manual 1.6 X10*3/uL (1.2-4.9); Lymphocytes Percent Manual 32 % (20-40); Monocytes Absolute Manual 0.3 X10*3/uL (0.1-1.2); Monocytes Percent Manual 5 % (2-11); Neutrophils Percent Manual 61 % (45-73)
[2024-10-01 12:14] LABS: RBC Morphology NORMAL
[2024-10-01 12:15] LABS: Large Platelet PRESENT
[2024-10-01 12:21] LABS: Band Neutrophils Percent 0 % (3-5); Neutrophils Absolute Manual 3.1 X10*3/uL (2.0-8.3)
== END 2024-10-01 06:58 | disposition home or self-care (01) ==
LOC: HO.HMGCLDS 06:57
PROVIDERS: Visit Provider Internal Medicine Rheumatology
DX: M33.13 Other dermatomyositis without myopathy (principal); Z79.899 Other long term (current) drug therapy
CPT/HCPCS: 36415; 82565; 84450; 84460; 85007; 85027; 85652; 86140

== ENCOUNTER 2024-11-03 09:56 | Outpatient (REF) | payer OTHER, SELFPAY ==
[2024-11-03 13:03] LABS: MANUAL DIFF FLAG NO
[2024-11-03 13:15] LABS: Hematocrit 40.1 % (37.0-47.0); Hemoglobin 13.4 g/dl (12.0-16.0); Imm Gran Abs Auto 0.06 X10*3/uL (0.00-0.03); Imm Gran Pct Auto 0.8 % (0.0-0.4); Lymphocytes Absolute Auto 3.5 X10*3/uL (1.2-4.9); Mean Corpuscular HGB Conc 33.4 g/dl (31.0-35.0); Mean Corpuscular Hemoglobin 31.8 pg (27.0-33.0); Mean Corpuscular Volume 95.0 fL (80.0-98.0); NRBC Abs Auto 0.000 X10*3/uL (0.0-0.012); NRBC Pct Auto 0.0 /100WBC (0.0-0.2); Platelet Count 280 X10*3/uL (160-400); Red Blood Count 4.22 X10*6/uL (4.20-5.50); White Blood Count 7.8 X10*3/uL (4.8-10.8)
[2024-11-03 18:22] LABS: Alanine Aminotransferase 22 U/L (0-31); Aspartate Amino Transferase 23 U/L (5-31); Estimated Glomerular Filt Rate > 60
== END 2024-11-03 09:57 | disposition home or self-care (01) ==
LOC: HO.HKASLDS 09:56
PROVIDERS: PCP Internal Medicine; Visit Provider Internal Medicine Rheumatology
DX: M33.13 Other dermatomyositis without myopathy (principal); R29.898 Other symptoms and signs involving the musculoskeletal system; Z79.899 Other long term (current) drug therapy; Z79.631 Long term (current) use of antimetabolite agent
CPT/HCPCS: 36415; 82085; 82550; 82565; 84450; 84460; 85025; 85652; 86140; 99212

== ENCOUNTER 2024-11-03 09:56 | Outpatient (AMB) | payer OTHER, SELFPAY ==
--- NOTE | 2024-11-03 09:58 | MHC.OFFVIS ---
Vital Signs 11/03/24 10:00 Height 5 ft 2 in Weight 141 lb BMI 25.8 BP 130/80 Blood Pressure Location Lt brachial Position Sitting Pulse 63 Pulse Source Pulse Oximeter Pulse Oximetry (%) 96 Intake Visit Reasons: follow up Intake Note: Pt presents today for a Dermatomyositis follow up. Accompanied by: Self / Same As Patient Allergies codeine Allergy (Unknown, Verified 09/03/24 08:03) nausea, dizziness Medication List - Last Reconciled 11/03/24 by Maxwell Lafleur MD albuterol 90 mcg/actuation mcg inhalation celecoxib 200 mg PO BID cetirizine (Allergy Relief (cetirizine)) 10 mg PO DAILY PRN fluticasone propionate 50 mcg/actuation 1 spray intranasal DAILY folic acid 2 mg (2 x 1 mg) PO DAILY furosemide 20 mg PO DAILY gabapentin 100 mg PO BID hydroxychloroquine 400 mg (2 x 200 mg) PO DAILY ipratropium-albuterol 20-100 mcg/actuation (Combivent Respimat) 1 puff inhalation Q6H methotrexate sodium 17.5 mg (7 x 2.5 mg) PO QWEEK 12 weeks montelukast 10 mg PO DAILY omeprazole 40 mg PO DAILY prednisone 10 mg PO DIRECTED prednisone 5 mg PO DIRECTED tirzepatide (weight loss) (Zepbound) 15 mg subcut QWEEK HPI HPI follow up: Details: She saw Dermatology who prescribed her Keflex, which she has been taking since last . She was prescribed a 1 week course. No change. She had wound culture done at Dr. Arias's office but has not heard a response. [facility] Medical History Fibroid uterus Dermatomyositis Surgical History H/O gastric sleeve Family History Mother Lung cancer Social History Alcohol intake: never Patient Tobacco Use Status: Former Tobacco user Physical Exam Vital Signs: Last Vital Signs Pulse 63 11/03/24 10:00 BP 130/80 11/03/24 10:00 Pulse Ox 96 11/03/24 10:00 BMI result Body Mass Index 25.8 Const Other: General: Comfortable CVS: RRR Respiratory: clear to auscultation bilaterally. Good respiratory effort Skin: Erythematous well demarcated ulcerated lesions right anterior lateral elbow with a few cysts appearing on the edge. No discharge or bleeding or oozing. Granulation tissue is present in ulcerated region. No lesions on her ear or hands. MSK: She has tender bilateral shoulders left worse than right. Shoulder abduction 160 degrees with limited full internal and external rotation actively. Limited external rotation of bilateral hips. No synovitis. No tenderness of ankles on palpation with good range of motion. No synovitis. Power upper extremities is 5/5. Power lower extremities hip flexors is 4 out of 5, rest of lower extremities is 5/5. Assessment & Plan Assessment & Plan (1) Dermatomyositis: Comment: Relapse cutaneous disease after discontinuing mycophenolate mofetil and hydroxychloroquine due to hair loss. She had partial benefit on prednisone with reducing soft tissue swelling around the lesion. Current lesions due not appear to be infected. She is on Keflex prescribed by Dermatology. Since being on folic acid with methotrexate, she no longer has clumps of hair loss. We discussed next steps in treatment. We discussed expectation of along methotrexate more time for full benefit (at least 2-3 months). We discussed switching p.o. methotrexate to subcutaneous injection due to bio availability and improved response for cutaneous disease management of dermatomyositis. She is afraid of needles. She will not be able to draw up methotrexate with syringe from vial. She is okay with prefilled syringe (Rasuvo/Otexup) as she has had experience with giving prefilled insulin to her partner. 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 Presented with ulcerated lesions on extremities, dorsal hands, finger, forehead and ear (external ear and middle ear). Biopsy suggestive of dermatomyositis. JODEE, anti Ela 1 antibody and myositis specific panel negative. Partial response with topical steroid prescribed by [facility] Dermatology. HCQ 12/2022-08/2024 d/c hair loss, MMF 04/2023-08/2024 d/c hair loss. Code(s): M33.13 - Other dermatomyositis without myopathy Category: Medical Plan: Increase methotrexate to 17.5 mg once weekly for 2 weeks then increase to 20 mg once weekly Increase folic acid 2 mg daily Rasuvo PA 20 mg once weekly, which we will replace po MTX when she has up titrated to 20 mg once weekly. She will need nurse visit for Rasuvo teaching and labs 1 month after starting Rasuvo with CBC, creatinine, AST, ALT Labs for drug monitoring on high-risk medication due today and in 4 weeks Restart hydroxychloroquine 300 mg daily. DECMarch 2023 WNL stable February 2024. Visual field April 2023 within normal limits. PT ordered to improve lower extremity strengthening. Requisition given to patient so she can have it done local to her home for improved compliance Continue Keflex. Complete 7 day course. Requesting wound culture results from Dermatology Return to clinic in 3 months (2) Other assisted (current) drug therapy: Code(s): Z79.899 - Other assisted (current) drug therapy Category: Medical Plan: See above (3) Lower extremity weakness: Comment: Chronic Proximal muscle weakness. Muscle enzymes and inflammatory markers are normal. Less likely related to dermatomyositis. Code(s): R29.898 - Other symptoms and signs involving the musculoskeletal system Category: Medical Qualifiers: Laterality: bilateral Qualified Code(s): R29.898 - Other symptoms and signs involving the musculoskeletal system Plan: She agreed to PT for lower extremity strengthening. PT requisition given to patient to have done local to her home for improved compliance Return to clinic in 3 months Orders: Orders Alanine Aminotransferase 1 Month Z79.899 - Other intermediate school teacher (current) drug therapy Creatinine 1 Month Z79.899 - Other assisted (current) drug therapy Erythrocyte Sedimentation Rate 1 Month Z79.899 - Other intermediate school teacher (current) drug therapy Alanine Aminotransferase Today M33.13 - Other dermatomyositis without myopathy, Z79.899 - Other intermediate school teacher (current) drug therapy C Reactive Protein Today M33.13 - Other dermatomyositis without myopathy, Z79.899 - Other intermediate school teacher (current) drug therapy Creatine Kinase Total Today M33.13 - Other dermatomyositis without myopathy Aldolase Today M33.13 - Other dermatomyositis without myopathy [id number] Dehydrogen Today M33.13 - Other dermatomyositis without myopathy, Z79.899 - Other assisted (current) drug therapy Complete Blood Count Auto Diff 2 Months Z79.899 - Other intermediate school teacher (current) drug therapy Alanine Aminotransferase 2 Months Z79.899 - Other intermediate school teacher (current) drug therapy C Reactive Protein 2 Months Z79.899 - Other assisted (current) drug therapy Complete Blood Count Auto Diff 1 Month Z79.899 - Other assisted (current) drug therapy Aspartate Amino Transferase 1 Month Z79.899 - Other assisted (current) drug therapy C Reactive Protein 1 Month Z79.899 - Other intermediate school teacher (current) drug therapy Complete Blood Count Auto Diff Today M33.13 - Other dermatomyositis without myopathy, Z79.899 - Other assisted (current) drug therapy Aspartate Amino Transferase Today M33.13 - Other dermatomyositis without myopathy, Z79.899 - Other assisted (current) drug therapy Creatinine Today M33.13 - Other dermatomyositis without myopathy, Z79.899 - Other assisted (current) drug therapy Erythrocyte Sedimentation Rate Today M33.13 - Other dermatomyositis without myopathy, Z79.899 - Other intermediate school teacher (current) drug therapy Aspartate Amino Transferase 2 Months Z79.899 - Other intermediate school teacher (current) drug therapy Creatinine 2 Months Z79.899 - Other assisted (current) drug therapy Erythrocyte Sedimentation Rate 2 Months Z79.899 - Other assisted (current) drug therapy Medications: New methotrexate (PF) (Rasuvo (PF)) Labs due in 1 month 20 mg (0.4 mL) subcut QWEEK 1.6 mL 2RF Changed From folic acid 1 mg PO DAILY 30 tabs 11RF To folic acid 2 mg (2 x 1 mg) PO DAILY 60 tabs 11RF From hydroxychloroquine 400 mg (2 x 200 mg) PO DAILY 60 tabs 2RF To hydroxychloroquine Reduced dose 300 mg (1.5 x 200 mg) PO DAILY 135 tabs 1RF 90 days From methotrexate sodium Increase dose 17.5 mg (7 x 2.5 mg) PO QWEEK 12 weeks 84 tabs 0RF To methotrexate sodium Increase dose as directed by Dr. Lafleur. Increase MTX 17.5mg once weekly for 2 weeks then increase to 20mg once weekly 2.5 mg PO DIRECTED 12 weeks 34 tabs 0RF From methotrexate sodium Increase dose as directed by Dr. Lafleur. Increase MTX 17.5mg once weekly for 2 weeks then increase to 20mg once weekly 2.5 mg PO DIRECTED 12 weeks 34 tabs 0RF To methotrexate sodium Increase dose as directed by Dr. Lafleur. Increase MTX 17.5mg once weekly for 2 weeks then increase to 20mg once weekly. Labs due in 1 month 2.5 mg PO DIRECTED 34 tabs 0RF 12 weeks Coding Level of Care Code Est Pt Level 4 (24482) Complex EM visit Add On G2211 Diagnoses Dermatomyositis M33.13 Other assisted (current) drug therapy Z79.899 Weakness of both lower extremities R29.898 Laterality: bilateral
[2024-11-03 10:00] VITALS: BP 130/80; PULSE 63; O2SAT 96; BMI 25.8
--- OUTSIDE RECORDS SUMMARY | 2024-11-03 11:15 | XMS_ITS | Encounter Summary ---
Author Organization [facility] Address [address] [place] [address] Care Team Providers Care Toxicologist Name Role Phone Sana Prather MD Primary Care Provider + Encounter Details Date Type Department Care Team (Latest Contact Info) Description 10/29/2024 Lab Requisition [facility] [address] [facility] [place] [address] Wiley Donaldson MD [facility] [place] [phone] Other dermatomyositis with myopathy ([facility] V24, [facility] V28) Social History Tobacco Use Types Packs/Day Years Used Date Smoking Tobacco: Former Cigarettes 0.5 8.6 S tarted: 2016 Smokeless Tobacco: Never Alcohol Use Standard Drinks/Week Comments No 0 (1 standard drink = 0.6 oz pur e alcohol) Comments Unknown Sex and Gender Information Value Date Recorded Sex Assigned at Not on file Legal Sex Female 8:43 AM EDT Gender Identity Not on file Sexual Orientation Not on file documented as of this encounter Plan of Treatment Upcoming Encounters Date Type Department Care Team (Late st Contact Info) Description 03/30/2025 8:00 AM EST Office Visit Bariatric Surgery - [place] [address] [facility] [address] [place] [address] Erasto Becker MD [address] [place] [address] Pending Results Name Type Priority Associated Diagnoses Date /Time Culture wound with gram stain Microbiology Routine Other dermatomyositis with myopathy ([facility] V24, [facility] V28) 10/29/2024 12:00 AM EDT documented as of this encounter Procedures Procedure Name Priority Date/Time Associated Diagnosis Comments CULTURE WOUND WITH GRAM STAIN Routine 10/29/2024 12:00 AM EDT Other dermatomyositis with myopathy ([facility] V24, [facility] V28) documented in this encounter Visit Diagnoses Diagnosis Other dermatomyositis with myopathy ([facility] V24, [facility] V28) documented in this encounter Care Teams Toxicologist Relationship Specialty Start Date End Date Sana Prather MD [address] [place] [phone] PCP - General 05/28/23 documented as of this encounter
--- OUTSIDE RECORDS SUMMARY | 2024-11-03 11:15 | XMS_ITS | Clinical Summary ---
Author Organization Patient Business Ser [facility] Address [address] [place] [address] Care Team Providers Care Continuing Education Dean Name Role Phone Sana Prather MD Primary [...] 2 mL 2 5 12/03/19 25 Active Active Problems Problem Noted Date Diagnosed Date Class 2 obesity due to exces s calories with body mass index (BMI) of 37.0 to 37.9 in adult 12/19/2023 Diet-controlled diabetes arash litus ([facility] V24, [facility] V28) 05/02/2022 Chronic hepatitis C without hepatic coma ([facility] V24, [facility] V28) 01/31/2016 Overview (12/19/2023): Chronic Hepatitis C Genotype 1B. Tx Started 03/30/16 Harvoni 90-400 mg. Take 1 Tab Daily for 8 Weeks. End Date 06/01/16. 08/20/16 SVR ACHIEVED. Gastroesophageal reflux disease without esophagi tis 11/03/2015 Moderate persistent asthma without complication 11/03/2015 Allergic rhinitis 04/03/2005 History of cocaine abuse ([facility] V24, [facility] V 28) 04/03/2005 Lumbago 04/03/2005 Encounters Date Type Department Care Team Description 10/29/2024 Lab Requisition [facility] - Main Lab [address] [facility] [place] [address] Wiley Donaldson MD Other dermatomyositis with myopathy ([facility] V24, [facility] V28) 09/24/2024 8:00 AM EDT Office Visit Bariatric Surgery - [place] [address] [facility] [address] [place] [address] Erasto Becker MD Over weight (Primary Dx); Postgastrectomy malabsorption 08/10/2024 Telephone Bariatric Surgery - [place] [address] [facility] [address] [place] [address] Erasto Becker MD from Last 3 Months Immunizations Name Administration Dates Next Due Influenza trivalent, with pr eservative (Fluzone; Afluria) 6mo and older 12/15/2022,12/15/2021,03/05/2021,11/19 Moderna (age 6mo & older) Bi valent, COVID-19, 0.5 mL or 0.25 mL dosage 12/15/2021 Mumps 11/09/1999 PPD Test 12/26/2000 [email or web address] SARS-CoV-2 COVID-19, mRNA, LNP-S, preservative free 10/18/2020 [...] obesity wit h BMI of 40.0-44.9, adult ([facility]) Family History Medical History Relation [...] AM EST Office Visit Bariatric Surgery - [place] [address] [place] [address] Erasto Becker MD [address] [place] [phone] Health Maintenance Due Date Last Done Comments [...] 12:00 AM EDT Other dermatomyositis with myopathy ([facility] V24, [facility] V28) ALBUMIN Routine 09/24/2024 8:31 AM EDT Postgastrectomy [...] LAB CHEMISTRY METHOD 09/24/2024 11:[address] [facility] TIBC 417 250 - 450 mcg/dL LAB CHEMISTRY METHOD 09/24/2024 11:[address] [facility] Iron Saturation 39 15 - 50 % LAB CHEMISTRY METHOD 09/24/2024 11:[address] [facility] Blood Venous blood specimen / Unknown Venipuncture / Unknown 09/24/2024 8:31 AM EDT 09/24/2024 8:31 AM EDT us Erasto Becker MD LAB BLOOD ORDERABLES Final R esult [facility] [address] [place] [address], [place] [phone] * Zinc (09/24/2024 8:31 AM EDT) Zinc 80 60 - 130 ug/dL 09/28/2024 12:44 PM EDT [facility] Comment: Elevated results may be due to sample collected in a non-certified trace element-free tube. This test was developed and the performance characteristics determined by [facility]. It has not been cleared or approved by the FDA. The laboratory is regulated under CLIA as qualified to perform high-complexity testing. This test is used for patient testing purposes. It should not be regarded as investigational or for research. Test performed at [facility], [address], [place] [address] Kathleen Cruz MD, PhD - [employer] Blood Venous blood specimen / Unknown Venipuncture / Unknown 09/24/2024 8:31 AM EDT 09/24/2024 8:31 AM EDT Erasto Becker MD LAB BLOOD ORDERABLES Final R esult Performing Organization Address City/[facility]/ZIP Co de Phone Number [facility] [address] [place] [address] * Parathyroid hormone intact (09/24/2024 8:31 AM EDT) PTH 51.5 18.5 - 88.0 pcg/mL LAB CHEMISTRY METHOD 09/24/2024 11:[address] [facility] Blood Venous blood specimen / Unknown Venipuncture / Unknown 09/24/2024 8:31 AM EDT 09/24/2024 8:31 AM EDT Erasto Becker MD LAB BLOOD ORDERABLES Final R esult Performing Organization Address [facility] de Phone Number [facility] [address] [place] [address], [place] [phone] * Vitamin B12 (09/24/2024 8:31 AM EDT) Pathologist [facility] Vitamin B-12 869 250 - 900 pcg/mL LAB CHEMISTRY METHOD 09/24/2024 11:[address] [facility] Blood Venous blood specimen / Unknown Venipuncture / Unknown 09/24/2024 8:31 AM EDT 09/24/2024 8:31 AM EDT us Erasto Becker MD LAB BLOOD ORDERABLES Final R esult Performing Organization Address City/[facility]/ZIP Co de Phone Number [facility] [address] [place] [address], [place] [phone] * Calcium (09/24/2024 8:31 AM EDT) [facility] Calcium 10.2 8.5 - 10.5 mg/dL LAB CHEMISTRY METHOD 09/24/2024 10:[address] [facility] Blood Venous blood specimen / Unknown Venipuncture / Unknown 09/24/2024 8:31 AM EDT 09/24/2024 8:31 AM EDT us Erasto Becker MD LAB BLOOD ORDERABLES Final R esult [facility] [address] [place] [address], [place] [phone] * Albumin (09/24/2024 8:31 AM EDT) [facility] Albumin 4.1 3.2 - 5.0 g/dL LAB CHEMISTRY METHOD 09/24/2024 10:[address] [facility] Blood Venous blood specimen / Unknown Venipuncture / Unknown 09/24/2024 8:31 AM EDT 09/24/2024 8:31 AM EDT us Erasto Becker MD LAB BLOOD ORDERABLES Final R esult [facility] [address] [place] [address], [place] [phone] * Diabetes Eye Exam (05/15/2023) [facility] Diabetes: Annual Retina Eye Exam abstracted Historical Provider HEALTH MAINTENANCE Final Result * Annual BMP Blood Test (10/23/2021) [facility] Annual BMP Blood Test abstracted Historical Provider HEALTH MAINTENANCE Final Result * Hemoglobin A1c (10/23/2021) Pathologist [facility] Hemoglobin A1C 6.2 <=6.5 % Blood Venous blood specimen / Unknown [facility] Provider LAB BLOOD ORDERABLES Ritu l Result * (ABNORMAL) Lipid panel (10/23/2021) Pathologist [facility] LDL/HDL Ratio 6(A) 0 - 4 Triglycerides 341(A) 0 - 150 mg/dL Cholesterol 253(A) 0 - 200 mg/dL HDL 41 >=40 mg/dL LDL Cholesterol 144(A) 0 - 100 mg/dL Blood Venous blood specimen / Unknown [facility] Provider LAB BLOOD ORDERABLES Ritu l Result * Hepatitis C Screening (06/25/2016) Pathologist [facility] Hepatitis C Screening abstracted [facility] Provider HEALTH MAINTENANCE Final Result * HIV Screening (01/31/2016) Pathologist [facility] HIV Screening abstracted [facility] Provider HEALTH MAINTENANCE Final Result from Last 3 Months or Most Recently Relevant to Health Maintenance Insurance [facility] MEDICA[employer]AGE [address] [place] [address] Care Teams Continuing Education Dean Relationship Specialty Start Date End Date Sana Prather MD [address] [place] [phone] [facility] - General 05/28/23
--- OUTSIDE RECORDS SUMMARY | 2024-11-03 11:15 | XMS_ITS ---
[facility] Name [facility] Organization Unknown Care Team Organization Name Specialty Phone Email Start Date End Da te [facility] Alvarez Burnett DO Primary Care 01/09/202210/02
== END 2024-11-03 10:45 | disposition home or self-care (01) ==
LOC: HO.RHES 09:57
PROVIDERS: PCP Internal Medicine; Visit Provider Internal Medicine Rheumatology
DX: M33.13 Other dermatomyositis without myopathy (principal); Z79.899 Other long term (current) drug therapy; R29.898 Other symptoms and signs involving the musculoskeletal system
CPT/HCPCS: 99214; G2211